=== PATIENT | female | born 1950 ===

== ENCOUNTER 2016-05-30 15:25 | Inpatient (IN) | payer OTHER ==
[2016-05-27 06:17] VITALS: BMI 37.9
[2016-05-30 18:02] VITALS: RESP 20
--- NOTE | 2016-05-30 18:53 | CP.PCM.CON ---
History of Present Illness - History of Present Illness History of Present Illness: Dr Sánchez PMR consultation on Ankita Gonzalez, born 1950, who has been admitted to [facility] TCU post op right THR by Dr Gama secondary to severe DJD post op stable, pain is controlled, minimal meds requested. + constipation Review of Systems - Constitutional Constitutional: absent: Anorexia, Chills - EENT Eyes: absent: Blurred Vision Nose/Mouth/Throat: absent: Nasal Congestion - Cardiovascular Cardiovascular: absent: Chest Pain - Respiratory Respiratory: absent: Dyspnea - Gastrointestinal Gastrointestinal: Constipation - Musculoskeletal Musculoskeletal: absent: Back Pain - Integumentary Integumentary: Other (right hip incision) - Neurological Neurological: absent: Abnormal Hearing, Abnormal Movements - Hematologic/Lymphatic Hematologic: absent: Easy Bruising Past Patient History - Past Medical History & Family History Past Medical History?: Yes - Past Social History Smoking Status: Heavy Smoker > 10 Cigarettes Daily Alcohol: None Drugs: Denies Home Situation {Lives}: With Family (few entry steps) - CARDIAC Hx Hypertension: No - ENDOCRINE/METABOLIC Hx Diabetes Mellitus Type 2: Yes - MUSCULOSKELETAL/RHEUMATOLOGICAL Hx Falls: Yes Hx Osteoarthritis: Yes - SURGICAL HISTORY Hx Surgeries: Yes Hx Appendectomy: Yes Hx Hysterectomy: Yes - ANESTHESIA Hx Anesthesia: Yes Hx Anesthesia Reactions: No Hx Malignant Hyperthermia: No Meds Allergies/Adverse Reactions: Allergies Allergy/AdvReac Type Severity Reaction Status Date / Time No Known Allergies Allergy Verified 05/30/16 16:08 - Medications Medications: Current Medications Aspirin (Aspirin) 325 mg PO DAILY [facility] Glyburide (Micronase) 5 mg PO BID [facility] Last Admin: 05/30/16 17:45 Dose: 5 mg Metformin HCl (Glucophage) 500 mg PO BID [facility] Last Admin: 05/30/16 17:45 Dose: 500 mg Ondansetron HCl (Zofran Inj) 4 mg IVP Q6 PRN PRN Reason: Nausea/Vomiting Oxycodone/Acetaminophen (Percocet 5/325 Mg Tab) 1 tab PO Q4 PRN PRN Reason: Pain, moderate (4-7) Stop: 06/02/16 17:00 Pantoprazole Sodium (Protonix Ec Tab) 40 mg PO DAILY [facility] Pneumococcal Polyvalent Vaccine (Pneumovax 23 Vaccine) 0.5 ml IM .ONCE ONE Stop: 05/31/16 09:01 Tramadol HCl (Ultram) 50 mg PO Q12 [facility] Physical Exam - Constitutional Appears: Non-toxic, No Acute Distress - Head Exam Head Exam: ATRAUMATIC, NORMAL INSPECTION, NORMOCEPHALIC - Eye Exam Eye Exam: EOMI - ENT Exam ENT Exam: Mucous Membranes Moist - Respiratory Exam Respiratory Exam: Chest Wall Tenderness - Cardiovascular Exam Cardiovascular Exam: REGULAR RHYTHM - GI/Abdominal Exam GI & Abdominal Exam: absent: Firm - Extremities Exam Extremities exam: Negative for: calf tenderness, pedal edema - Neurological Exam Neurological exam: Alert, CN II-XII Intact, Oriented x3 - Psychiatric Exam Psychiatric exam: Normal Affect, Normal Mood Results - Vital Signs Recent Vital Signs: Last Vital Signs Temp 97.9 F 05/30/16 18:01 Pulse 69 05/30/16 18:01 Resp 20 05/30/16 18:01 BP 128/60 05/30/16 18:01 Pulse Ox 99 05/30/16 18:01 - Labs Labs: Laboratory Results - last 24 hr 05/30/16 16:29 POC Glucose (mg/dL) 215 H Assessment & Plan - Assessment and Plan (Free Text) Plan: s/p right THR pain is controlled bowel regimen in A-frame for THP as well continue current care PT/OT
[2016-05-30] MEDS: Oxycodone/Acetaminophen 5/325 mg Tab PO PRN (19:00)
[2016-05-31] MEDS: Oxycodone/Acetaminophen 5/325 mg Tab PO PRN ×3 (06:45→19:46)
[2016-05-31] MEDS ORDERED: Pneumococcal 23-Valent Vaccine IM ONE (09:00)
[2016-05-31] MEDS: Pantoprazole 40 mg EC Tab PO SCH (10:06)
--- NOTE | 2016-05-31 10:06 | CP.PCM.HP ---
History of Present Illness - History of Present Illness History of Present Illness: This is a 66 y/o female admitted for further rehab and Phys therapy. She had a recent right THR , 3 days ago. immediate post op period was unremarkable. Has hx of DM 2 on Metformin and glyburide. Present on Admission - Present on Admission Any Indicators Present on Admission: No History of DVT/PE: No History of Uncontrolled Diabetes: Yes Urinary Catheter: No Decubitus Ulcer Present: No Review of Systems - Musculoskeletal Musculoskeletal: Abnormal Gait, Arthralgias Past Patient History - Past Medical History & Family History Past Medical History?: Yes - Past Social History Smoking Status: Heavy Smoker > 10 Cigarettes Daily Alcohol: None Drugs: Denies Home Situation {Lives}: With Family (few entry steps) - CARDIAC Hx Hypertension: No - ENDOCRINE/METABOLIC Hx Diabetes Mellitus Type 2: Yes - MUSCULOSKELETAL/RHEUMATOLOGICAL Hx Falls: Yes Hx Osteoarthritis: Yes - PSYCHIATRIC Hx Substance Use: No - SURGICAL HISTORY Hx Surgeries: Yes Hx Appendectomy: Yes Hx Hysterectomy: Yes - ANESTHESIA Hx Anesthesia: Yes Hx Anesthesia Reactions: No Hx Malignant Hyperthermia: No Meds Allergies/Adverse Reactions: Allergies Allergy/AdvReac Type Severity Reaction Status Date / Time No Known Allergies Allergy Verified 05/30/16 16:08 Physical Exam - Head Exam Head Exam: NORMAL INSPECTION - Eye Exam Eye Exam: Normal appearance - ENT Exam ENT Exam: Mucous Membranes Moist - Neck Exam Neck exam: Positive for: Normal Inspection - Respiratory Exam Respiratory Exam: Clear to Auscultation Bilateral, NORMAL BREATHING PATTERN - GI/Abdominal Exam GI & Abdominal Exam: Normal Bowel Sounds - Neurological Exam Neurological exam: CN II-XII Intact, Oriented x3 - Psychiatric Exam Psychiatric exam: Normal Mood Results - Vital Signs Recent Vital Signs: Last Vital Signs Temp 98.2 F 05/31/16 08:36 Pulse 68 05/31/16 08:36 Resp 20 05/31/16 08:36 BP 113/50 L 05/31/16 08:36 Pulse Ox 100 05/31/16 08:36 - Labs Labs: Laboratory Results - last 24 hr 05/30/16 05/30/16 05/31/16 16:29 21:36 05:28 POC Glucose (mg/dL) 215 H 189 H 227 H Assessment & Plan (1) Gait abnormality Status: Acute (2) Status post total hip replacement, right Status: Acute (3) Diabetes mellitus type 2 in obese Status: Acute - Assessment and Plan (Free Text) Plan: Con tmeds Cont txPain meds stool softener. start PT
[2016-06-01] MEDS: Oxycodone/Acetaminophen 5/325 mg Tab PO PRN ×3 (04:59→22:24)
[2016-06-01] MEDS: Pantoprazole 40 mg EC Tab PO SCH (08:46)
[2016-06-02] MEDS: Oxycodone/Acetaminophen 5/325 mg Tab PO PRN ×4 (06:32→23:47)
--- NOTE | 2016-06-02 09:31 | CP.PCM.PN ---
Subjective - Date & Time of Evaluation Date of Evaluation: 06/01/16 Time of Evaluation: 09:35 - Subjective Subjective: patient has so much constipation Poor response to lactulose Has no abd pain. Noted some drainage on the op wound. No fever. A ccucheck elevated Objective - Vital Signs/Intake and Output Vital Signs (last 24 hours): Temp Pulse Resp BP Pulse Ox 98.2 F 74 20 122/59 L 99 06/01/16 22:20 06/01/16 22:20 06/01/16 22:20 06/01/16 22:20 06/01/16 22:20 - Medications Medications: Current Medications Aspirin (Aspirin) 325 mg PO DAILY [facility] Last Admin: 06/01/16 08:49 Dose: 325 mg Glyburide (Micronase) 5 mg PO BID [facility] Last Admin: 06/01/16 16:53 Dose: 5 mg Metformin HCl (Glucophage) 500 mg PO BID [facility] Last Admin: 06/01/16 16:53 Dose: 500 mg Ondansetron HCl (Zofran Inj) 4 mg IVP Q6 PRN PRN Reason: Nausea/Vomiting Oxycodone/Acetaminophen (Percocet 5/325 Mg Tab) 1 tab PO Q4 PRN PRN Reason: Pain, moderate (4-7) Stop: 06/02/16 17:00 Last Admin: 06/02/16 06:32 Dose: 1 tab Pantoprazole Sodium (Protonix Ec Tab) 40 mg PO DAILY [facility] Last Admin: 06/01/16 08:46 Dose: 40 mg Sennosides (Senokot Tab) 17.2 mg PO HS [facility] Last Admin: 06/01/16 21:50 Dose: 17.2 mg Sodium Phosphate (Fleet Enema) 135 ml [place] ONCE PRN PRN Reason: Constipation Last Admin: 06/01/16 15:19 Dose: 135 ml Tramadol HCl (Ultram) 50 mg PO Q12 [facility] Last Admin: 06/01/16 21:49 Dose: 50 mg - Head Exam Head Exam: NORMAL INSPECTION - Eye Exam Eye Exam: Normal appearance - Respiratory Exam Respiratory Exam: Clear to Ausculation Bilateral - Cardiovascular Exam Cardiovascular Exam: REGULAR RHYTHM - GI/Abdominal Exam GI & Abdominal Exam: Normal Bowel Sounds - Extremities Exam Additional comments: noted drainage on the right op wound - Neurological Exam Neurological Exam: Awake, CN II-XII Intact, Oriented x3 Assessment and Plan (1) Gait abnormality Status: Acute (2) Status post total hip replacement, right Status: Acute (3) Diabetes mellitus type 2 in obese Status: Acute - Assessment and Plan (Free Text) Plan: cont meds check a1c lipid cmp urine microalb tsh in am cbc in am
--- NOTE | 2016-06-02 09:34 | CP.PCM.PN ---
Subjective - Date & Time of Evaluation Date of Evaluation: 06/02/16 Time of Evaluation: 09:32 - Subjective Subjective: patient was able to have bm after enema. Has no chest pain or SOB Still with a lot of drainage on the op site. Noted elevated accucheck. Objective - Vital Signs/Intake and Output Vital Signs (last 24 hours): Temp Pulse Resp BP Pulse Ox 98.2 F 74 20 122/59 L 99 06/01/16 22:20 06/01/16 22:20 06/01/16 22:20 06/01/16 22:20 06/01/16 22:20 - Medications Medications: Current Medications Aspirin (Aspirin) 325 mg PO DAILY [facility] Last Admin: 06/01/16 08:49 Dose: 325 mg Glyburide (Micronase) 5 mg PO BID [facility] Last Admin: 06/01/16 16:53 Dose: 5 mg Metformin HCl (Glucophage) 500 mg PO BID [facility] Last Admin: 06/01/16 16:53 Dose: 500 mg Ondansetron HCl (Zofran Inj) 4 mg IVP Q6 PRN PRN Reason: Nausea/Vomiting Oxycodone/Acetaminophen (Percocet 5/325 Mg Tab) 1 tab PO Q4 PRN PRN Reason: Pain, moderate (4-7) Stop: 06/02/16 17:00 Last Admin: 06/02/16 06:32 Dose: 1 tab Pantoprazole Sodium (Protonix Ec Tab) 40 mg PO DAILY [facility] Last Admin: 06/01/16 08:46 Dose: 40 mg Sennosides (Senokot Tab) 17.2 mg PO HS [facility] Last Admin: 06/01/16 21:50 Dose: 17.2 mg Sodium Phosphate (Fleet Enema) 135 ml [place] ONCE PRN PRN Reason: Constipation Last Admin: 06/01/16 15:19 Dose: 135 ml Tramadol HCl (Ultram) 50 mg PO Q12 [facility] Last Admin: 06/01/16 21:49 Dose: 50 mg - Head Exam Head Exam: NORMAL INSPECTION - Eye Exam Eye Exam: Normal appearance - Respiratory Exam Respiratory Exam: Clear to Ausculation Bilateral, NORMAL BREATHING PATTERN - Cardiovascular Exam Cardiovascular Exam: REGULAR RHYTHM - GI/Abdominal Exam GI & Abdominal Exam: Normal Bowel Sounds - Extremities Exam Additional comments: serosanginous drainage on the right THR wound. Assessment and Plan (1) Gait abnormality Status: Acute (2) Status post total hip replacement, right Status: Acute (3) Diabetes mellitus type 2 in obese Status: Acute - Assessment and Plan (Free Text) Plan: increase metformin to 1000 BID check labs start januvia 100 mg daily DC glyburide stool softener inform Dr Hernandez re drainage. check labs
[2016-06-02] MEDS: Pantoprazole 40 mg EC Tab PO SCH (10:02)
[2016-06-02 11:47] LABS: BASO # 0.1 K/uL (0.0-0.2); BASO % 1.1 % (0.0-2.0); EOS # 0.4 K/uL (0.0-0.7); EOS % 5.9 % (0.0-4.0); HEMATOCRIT 28.3 % (34.0-47.0); LYMPH # 1.6 K/uL (1.0-4.3); LYMPH % 23.4 % (20.0-40.0); MEAN CELL VOLUME 90.9 fl (81.0-99.0); MEAN CORPUSCULAR HEMOGLOBIN 30.9 pg (27.0-31.0); MEAN PLATELET VOLUME 8.3 fl (7.2-11.7); MONO # 0.8 K/uL (0.0-0.8); MONO % 12.2 % (0.0-10.0); NEUT # 3.9 K/uL (1.8-7.0); NEUT % 57.4 % (50.0-75.0); NRBC % 0.1 % (0.0-0.0); WHITE BLOOD COUNT 6.8 K/uL (4.8-10.8)
[2016-06-02 12:02] LABS: ALKALINE PHOSPHATASE 94 U/L (38-126); ALT/SGPT 33 U/L (9-52); AST/SGOT 17 U/L (14-36); BILIRUBIN,TOTAL 0.5 mg/dl (0.2-1.3); BLOOD UREA NITROGEN 13 mg/dl (7-17); CALCIUM 9.2 mg/dL (8.4-10.2); CARBON DIOXIDE 30 mmol/L (22-30); CHLORIDE 96 mmol/L (98-107); CHOLESTEROL 199 mg/dL (0-199); GFR AFRICAN-AMERICAN > 60; GLUCOSE,RANDOM 228 mg/dL (65-105); POTASSIUM 4.9 MMOL/L (3.6-5.0); SODIUM 136 mmol/l (132-148)
[2016-06-02 12:31] LABS: THYROID STIMULATING HORMONE 1.16 mIU/ML (0.46-4.68)
[2016-06-03] MEDS: Oxycodone/Acetaminophen 5/325 mg Tab PO PRN ×2 (05:14→15:09)
[2016-06-03] MEDS: Pantoprazole 40 mg EC Tab PO SCH (08:35)
--- NOTE | 2016-06-03 10:58 | CP.PCM.PN ---
Subjective - Date & Time of Evaluation Date of Evaluation: 06/03/16 Time of Evaluation: 09:40 - Subjective Subjective: Pt seen and examined at bedside this morning, she would like a new room, as the pt next door to her keep screaming weird thing especially at night and she is uncomfortable. other that her pain is well controlled and rehab is going ok. No other complaints Objective - Vital Signs/Intake and Output Vital Signs (last 24 hours): Temp Pulse Resp BP Pulse Ox 98.1 F 72 20 110/59 L 100 06/03/16 07:53 06/03/16 08:34 06/03/16 07:53 06/03/16 08:34 06/03/16 07:53 - Medications Medications: Current Medications Aspirin (Aspirin) 325 mg PO DAILY [facility] Last Admin: 06/03/16 08:34 Dose: 325 mg Losartan Potassium (Cozaar) 25 mg PO DAILY [facility] Last Admin: 06/03/16 08:34 Dose: 25 mg Metformin HCl (Glucophage) 1,000 mg PO BIDWM [facility] Last Admin: 06/03/16 08:35 Dose: 1,000 mg Ondansetron HCl (Zofran Inj) 4 mg IVP Q6 PRN PRN Reason: Nausea/Vomiting Oxycodone/Acetaminophen (Percocet 5/325 Mg Tab) 1 tab PO Q4 PRN PRN Reason: Pain, moderate (4-7) Stop: 06/05/16 18:46 Last Admin: 06/03/16 05:14 Dose: 1 tab Pantoprazole Sodium (Protonix Ec Tab) 40 mg PO DAILY [facility] Last Admin: 06/03/16 08:35 Dose: 40 mg Sennosides (Senokot Tab) 17.2 mg PO HS [facility] Last Admin: 06/02/16 21:04 Dose: 17.2 mg Sitagliptin Phosphate (Januvia) 100 mg PO DAILY [facility] Last Admin: 06/03/16 08:35 Dose: 100 mg Sodium Phosphate (Fleet Enema) 135 ml [place] ONCE PRN PRN Reason: Constipation Last Admin: 06/01/16 15:19 Dose: 135 ml Tramadol HCl (Ultram) 50 mg PO Q12 [facility] Last Admin: 06/03/16 08:35 Dose: 50 mg - Labs Labs: 06/02/16 10:40 06/02/16 10:40 - Constitutional Appears: Non-toxic, No Acute Distress - Head Exam Head Exam: NORMOCEPHALIC - Eye Exam Eye Exam: Normal appearance, PERRL Pupil Exam: NORMAL ACCOMODATION - ENT Exam ENT Exam: Mucous Membranes Moist - Respiratory Exam Respiratory Exam: Clear to Ausculation Bilateral, NORMAL BREATHING PATTERN. absent: Rhonchi, Wheezes - Cardiovascular Exam Cardiovascular Exam: REGULAR RHYTHM, +S1, +S2 - GI/Abdominal Exam GI & Abdominal Exam: Soft, Normal Bowel Sounds. absent: Tenderness - Extremities Exam Extremities Exam: absent: Calf Tenderness Additional comments: Right hip neatly dressed, no discharge noted, no redness, no signs of infection - Neurological Exam Neurological Exam: Alert, Awake, CN II-XII Intact, Oriented x3 Assessment and Plan - Assessment and Plan (Free Text) Plan: 1. Right HIP replacement Pain management as ordered Continue with Physical therapy 2. NonInsulin Dependent Diabetes Continue with home medications as ordered Diet- Diabetic DVT prophylaxis- Aspirin per orthopedic surgeon
[2016-06-04] MEDS: Oxycodone/Acetaminophen 5/325 mg Tab PO PRN ×2 (03:05→18:05)
[2016-06-04] MEDS: Pantoprazole 40 mg EC Tab PO SCH (08:31)
--- NOTE | 2016-06-04 11:03 | CP.PCM.PN ---
Subjective - Date & Time of Evaluation Date of Evaluation: 06/04/16 Time of Evaluation: 09:00 - Subjective Subjective: Pt seen and examined at bedside this morning, states she walked from the bathroom into the chair she was sitting in without assistance. Appears to be making great progress with rehab Objective - Vital Signs/Intake and Output Vital Signs (last 24 hours): Temp Pulse Resp BP Pulse Ox 97.7 F 66 20 115/58 L 99 06/04/16 08:44 06/04/16 08:44 06/04/16 08:44 06/04/16 08:44 06/04/16 08:44 - Medications Medications: Current Medications Aspirin (Aspirin) 325 mg PO DAILY [facility] Last Admin: 06/03/16 08:34 Dose: 325 mg Losartan Potassium (Cozaar) 25 mg PO DAILY [facility] Last Admin: 06/04/16 08:32 Dose: 25 mg Metformin HCl (Glucophage) 1,000 mg PO BIDWM [facility] Last Admin: 06/04/16 08:30 Dose: 1,000 mg Ondansetron HCl (Zofran Inj) 4 mg IVP Q6 PRN PRN Reason: Nausea/Vomiting Oxycodone/Acetaminophen (Percocet 5/325 Mg Tab) 1 tab PO Q4 PRN PRN Reason: Pain, moderate (4-7) Stop: 06/05/16 18:46 Last Admin: 06/04/16 03:05 Dose: 1 tab Pantoprazole Sodium (Protonix Ec Tab) 40 mg PO DAILY [facility] Last Admin: 06/04/16 08:31 Dose: 40 mg Sennosides (Senokot Tab) 17.2 mg PO HS [facility] Last Admin: 06/03/16 21:04 Dose: 17.2 mg Sitagliptin Phosphate (Januvia) 100 mg PO DAILY [facility] Last Admin: 06/04/16 08:30 Dose: 100 mg Sodium Phosphate (Fleet Enema) 135 ml [place] ONCE PRN PRN Reason: Constipation Last Admin: 06/01/16 15:19 Dose: 135 ml Tramadol HCl (Ultram) 50 mg PO Q12 [facility] Last Admin: 06/04/16 08:31 Dose: 50 mg - Labs Labs: 06/02/16 10:40 06/02/16 10:40 - Constitutional Appears: Non-toxic, No Acute Distress - Head Exam Head Exam: NORMOCEPHALIC - Eye Exam Eye Exam: Normal appearance, PERRL Pupil Exam: NORMAL ACCOMODATION - ENT Exam ENT Exam: Mucous Membranes Moist - Respiratory Exam Respiratory Exam: Clear to Ausculation Bilateral, NORMAL BREATHING PATTERN. absent: Rhonchi, Wheezes - Cardiovascular Exam Cardiovascular Exam: REGULAR RHYTHM, +S1, +S2 - GI/Abdominal Exam GI & Abdominal Exam: Soft, Normal Bowel Sounds. absent: Tenderness - Extremities Exam Extremities Exam: Calf Tenderness, Pedal Edema Additional comments: lower extremity is swollen R>L - Neurological Exam Neurological Exam: Alert, Awake, CN II-XII Intact, Oriented x3 Assessment and Plan - Assessment and Plan (Free Text) Assessment: 66 y/o female diabetic in rehab s/p hip replacement Plan: Plan: 1. Right HIP replacement Pain management as ordered Continue with Physical therapy Lower extremity swelling- Ultrasound ordered- awaiting results 2. NonInsulin Dependent Diabetes Continue with home medications as ordered Diet- Diabetic DVT prophylaxis- Aspirin per orthopedic surgeon Will re-evaluate later today , if swelling persist will start lovenox
--- NOTE | 2016-06-04 17:55 | CP.PCM.PN ---
Subjective - Date & Time of Evaluation Date of Evaluation: 06/04/16 Time of Evaluation: 17:55 - Subjective Subjective: patient seen in room doing ok denies sob/cp or fever able to ambulate 40' continue current care Objective - Vital Signs/Intake and Output Vital Signs (last 24 hours): Temp Pulse Resp BP Pulse Ox 97 F L 69 20 118/66 98 06/04/16 16:31 06/04/16 16:31 06/04/16 16:31 06/04/16 16:31 06/04/16 16:31 - Medications Medications: Current Medications Aspirin (Aspirin) 325 mg PO DAILY [facility] Last Admin: 06/04/16 09:15 Dose: 325 mg Cefazolin Sodium 1 gm/ Sodium (Chloride) 100 mls @ 100 mls/hr IVPB Q12@0500, 1700 [facility] Losartan Potassium (Cozaar) 25 mg PO DAILY [facility] Last Admin: 06/04/16 08:32 Dose: 25 mg Metformin HCl (Glucophage) 1,000 mg PO BIDWM [facility] Last Admin: 06/04/16 08:30 Dose: 1,000 mg Ondansetron HCl (Zofran Inj) 4 mg IVP Q6 PRN PRN Reason: Nausea/Vomiting Oxycodone/Acetaminophen (Percocet 5/325 Mg Tab) 1 tab PO Q4 PRN PRN Reason: Pain, moderate (4-7) Stop: 06/05/16 18:46 Last Admin: 06/04/16 03:05 Dose: 1 tab Pantoprazole Sodium (Protonix Ec Tab) 40 mg PO DAILY [facility] Last Admin: 06/04/16 08:31 Dose: 40 mg Sennosides (Senokot Tab) 17.2 mg PO HS [facility] Last Admin: 06/03/16 21:04 Dose: 17.2 mg Sitagliptin Phosphate (Januvia) 100 mg PO DAILY [facility] Last Admin: 06/04/16 08:30 Dose: 100 mg Sodium Phosphate (Fleet Enema) 135 ml [place] ONCE PRN PRN Reason: Constipation Last Admin: 06/01/16 15:19 Dose: 135 ml Tramadol HCl (Ultram) 50 mg PO Q12 [facility] Last Admin: 06/04/16 08:31 Dose: 50 mg - Labs Labs: 06/02/16 10:40 06/02/16 10:40
[2016-06-04] MEDS: ceFAZolin 1 GM in Sodium Chloride 0.9% 100 ML IVPB SCH (18:08)
[2016-06-05] MEDS: Oxycodone/Acetaminophen 5/325 mg Tab PO PRN ×3 (02:31→14:56)
[2016-06-05] MEDS: ceFAZolin 1 GM in Sodium Chloride 0.9% 100 ML IVPB SCH ×2 (05:02→17:31)
[2016-06-05] MEDS: Pantoprazole 40 mg EC Tab PO SCH (09:12)
--- NOTE | 2016-06-05 11:12 | CP.PCM.PN ---
Subjective - Date & Time of Evaluation Date of Evaluation: 06/05/16 Time of Evaluation: 10:00 - Subjective Subjective: Pt seen and examined at bedside this morning, she feels like leg swelling is improving, states pain has improved. she is ambulating ok. rehab is going well Objective - Vital Signs/Intake and Output Vital Signs (last 24 hours): Temp Pulse Resp BP Pulse Ox 97.2 F L 60 20 114/61 100 06/05/16 08:37 06/05/16 09:12 06/05/16 08:37 06/05/16 09:12 06/05/16 08:37 - Medications Medications: Current Medications Aspirin (Aspirin) 325 mg PO DAILY [facility] Last Admin: 06/05/16 09:11 Dose: 325 mg Cefazolin Sodium 1 gm/ Sodium (Chloride) 100 mls @ 100 mls/hr IVPB Q12@0500, 1700 [facility] Last Admin: 06/05/16 05:02 Dose: 100 mls/hr Losartan Potassium (Cozaar) 25 mg PO DAILY [facility] Last Admin: 06/05/16 09:12 Dose: 25 mg Metformin HCl (Glucophage) 1,000 mg PO BIDWM [facility] Last Admin: 06/05/16 09:11 Dose: 1,000 mg Ondansetron HCl (Zofran Inj) 4 mg IVP Q6 PRN PRN Reason: Nausea/Vomiting Oxycodone/Acetaminophen (Percocet 5/325 Mg Tab) 1 tab PO Q4 PRN PRN Reason: Pain, moderate (4-7) Stop: 06/05/16 18:46 Last Admin: 06/05/16 07:34 Dose: 1 tab Pantoprazole Sodium (Protonix Ec Tab) 40 mg PO DAILY [facility] Last Admin: 06/05/16 09:12 Dose: 40 mg Sennosides (Senokot Tab) 17.2 mg PO HS [facility] Last Admin: 06/04/16 21:35 Dose: 17.2 mg Sitagliptin Phosphate (Januvia) 100 mg PO DAILY [facility] Last Admin: 06/05/16 09:12 Dose: 100 mg Sodium Phosphate (Fleet Enema) 135 ml [place] ONCE PRN PRN Reason: Constipation Last Admin: 06/01/16 15:19 Dose: 135 ml Tramadol HCl (Ultram) 50 mg PO Q12 [facility] Last Admin: 06/05/16 09:11 Dose: 50 mg - Labs Labs: 06/02/16 10:40 06/02/16 10:40 - Constitutional Appears: Non-toxic, No Acute Distress - Head Exam Head Exam: NORMOCEPHALIC - Eye Exam Eye Exam: Normal appearance, PERRL Pupil Exam: NORMAL ACCOMODATION - ENT Exam ENT Exam: Mucous Membranes Moist - Respiratory Exam Respiratory Exam: Clear to Ausculation Bilateral, NORMAL BREATHING PATTERN. absent: Rhonchi, Wheezes - Cardiovascular Exam Cardiovascular Exam: REGULAR RHYTHM, +S1, +S2 - GI/Abdominal Exam GI & Abdominal Exam: Soft, Normal Bowel Sounds. absent: Tenderness - Extremities Exam Additional comments: Minimal calf tenderness of right calf Right lower extremity remain swollen about 3+ edema No warmth, no erythema - Neurological Exam Neurological Exam: Alert, Awake, CN II-XII Intact, Oriented x3 Assessment and Plan - Assessment and Plan (Free Text) Assessment: 66 y/o female diabetic in rehab s/p hip replacement Plan: 1. Right HIP replacement Pain management as ordered Continue with Physical therapy 2. Right lower extremity Swelling Venous Doppler negative for clot Arterial Doppler shows evidence of mild atheroscloresis dx Discussed with surgical PA again regarding starting Lovenox- Per PA, Dr. Gama recommends aspirin since ultrasound is negative will continue Ancef Q12hrs 3. NonInsulin Dependent Diabetes Continue with home medications as ordered Diet- Diabetic DVT prophylaxis- Aspirin per orthopedic surgeon
[2016-06-06] MEDS: ceFAZolin 1 GM in Sodium Chloride 0.9% 100 ML IVPB SCH ×2 (04:46→17:24)
[2016-06-06] MEDS: Oxycodone/Acetaminophen 5/325 mg Tab PO PRN ×3 (08:31→23:15)
[2016-06-06] MEDS: Pantoprazole 40 mg EC Tab PO SCH (08:32)
--- NOTE | 2016-06-06 12:15 | CP.PCM.PN ---
Subjective - Date & Time of Evaluation Date of Evaluation: 06/06/16 Time of Evaluation: 09:40 - Subjective Subjective: Pt seen and examined at the rehab gym this morning, right lower extremity looks much better, not as swollen as the previous days. doing well; does not have any complaints Objective - Vital Signs/Intake and Output Vital Signs (last 24 hours): Temp Pulse Resp BP Pulse Ox 97.7 F 61 20 104/36 L 100 06/06/16 08:47 06/06/16 08:47 06/06/16 08:47 06/06/16 08:47 06/06/16 08:47 - Medications Medications: Current Medications Aspirin (Aspirin) 325 mg PO DAILY [facility] Last Admin: 06/06/16 08:30 Dose: 325 mg Cefazolin Sodium 1 gm/ Sodium (Chloride) 100 mls @ 100 mls/hr IVPB Q12@0500, 1700 [facility] Last Admin: 06/06/16 04:46 Dose: 100 mls/hr Losartan Potassium (Cozaar) 25 mg PO DAILY [facility] Last Admin: 06/06/16 08:32 Dose: 25 mg Metformin HCl (Glucophage) 1,000 mg PO BIDWM [facility] Last Admin: 06/06/16 08:32 Dose: 1,000 mg Ondansetron HCl (Zofran Inj) 4 mg IVP Q6 PRN PRN Reason: Nausea/Vomiting Oxycodone/Acetaminophen (Percocet 5/325 Mg Tab) 1 tab PO Q4 PRN PRN Reason: Pain, severe (8-10) Stop: 06/09/16 07:03 Last Admin: 06/06/16 08:31 Dose: 1 tab Pantoprazole Sodium (Protonix Ec Tab) 40 mg PO DAILY [facility] Last Admin: 06/06/16 08:32 Dose: 40 mg Sennosides (Senokot Tab) 17.2 mg PO HS [facility] Last Admin: 06/05/16 21:28 Dose: 17.2 mg Sitagliptin Phosphate (Januvia) 100 mg PO DAILY [facility] Last Admin: 06/06/16 08:31 Dose: 100 mg Sodium Phosphate (Fleet Enema) 135 ml [place] ONCE PRN PRN Reason: Constipation Last Admin: 06/01/16 15:19 Dose: 135 ml Tramadol HCl (Ultram) 50 mg PO Q12 [facility] Last Admin: 06/06/16 09:57 Dose: 50 mg - Labs Labs: 06/02/16 10:40 06/02/16 10:40 - Constitutional Appears: Non-toxic, No Acute Distress - Head Exam Head Exam: NORMOCEPHALIC - Eye Exam Eye Exam: Normal appearance, PERRL Pupil Exam: NORMAL ACCOMODATION - ENT Exam ENT Exam: Mucous Membranes Moist - Respiratory Exam Respiratory Exam: Clear to Ausculation Bilateral, NORMAL BREATHING PATTERN. absent: Rhonchi, Wheezes - Cardiovascular Exam Cardiovascular Exam: REGULAR RHYTHM, +S1, +S2 - GI/Abdominal Exam GI & Abdominal Exam: Soft, Normal Bowel Sounds. absent: Tenderness - Extremities Exam Additional comments: swelling improved greatly , no redness, not warm - Neurological Exam Neurological Exam: Alert, Awake, CN II-XII Intact, Oriented x3 Assessment and Plan - Assessment and Plan (Free Text) Assessment: 66 y/o female diabetic in rehab s/p hip replacement Plan: 1. Right HIP replacement Pain management as ordered Continue with Physical therapy 2. Right lower extremity Swelling improved greatly Venous Doppler negative for clot Arterial Doppler shows evidence of mild atheroscloresis dx Discussed with surgical PA again regarding starting Lovenox- Per PA, Dr. Gama recommends aspirin since ultrasound is negative will continue Ancef Q12hrs 3. NonInsulin Dependent Diabetes Continue with home medications as ordered Diet- Diabetic DVT prophylaxis- Aspirin per orthopedic surgeon
[2016-06-07] MEDS: ceFAZolin 1 GM in Sodium Chloride 0.9% 100 ML IVPB SCH ×2 (04:48→17:03)
[2016-06-07] MEDS: Pantoprazole 40 mg EC Tab PO SCH (08:45)
[2016-06-07] MEDS: Oxycodone/Acetaminophen 5/325 mg Tab PO PRN ×2 (11:18→19:01)
[2016-06-08] MEDS: ceFAZolin 1 GM in Sodium Chloride 0.9% 100 ML IVPB SCH ×2 (04:45→17:31)
[2016-06-08] MEDS: Oxycodone/Acetaminophen 5/325 mg Tab PO PRN ×2 (07:57→17:31)
[2016-06-08] MEDS: Pantoprazole 40 mg EC Tab PO SCH (08:46)
--- NOTE | 2016-06-08 16:29 | CP.PCM.PN ---
Subjective - Date & Time of Evaluation Date of Evaluation: 06/07/16 Time of Evaluation: 09:40 - Subjective Subjective: Patient remains well Noted improvement of FBS Objective - Vital Signs/Intake and Output Vital Signs (last 24 hours): Temp Pulse Resp BP Pulse Ox 97.7 F 60 20 109/73 98 06/08/16 08:19 06/08/16 08:46 06/08/16 08:19 06/08/16 08:46 06/08/16 08:19 - Medications Medications: Current Medications Aspirin (Aspirin) 325 mg PO DAILY [facility] Last Admin: 06/08/16 08:45 Dose: 325 mg Cefazolin Sodium 1 gm/ Sodium (Chloride) 100 mls @ 100 mls/hr IVPB Q12@0500, 1700 [facility] Last Admin: 06/08/16 04:45 Dose: 100 mls/hr Losartan Potassium (Cozaar) 25 mg PO DAILY [facility] Last Admin: 06/08/16 08:46 Dose: 25 mg Metformin HCl (Glucophage) 1,000 mg PO BIDWM [facility] Last Admin: 06/08/16 08:46 Dose: 1,000 mg Ondansetron HCl (Zofran Inj) 4 mg IVP Q6 PRN PRN Reason: Nausea/Vomiting Oxycodone/Acetaminophen (Percocet 5/325 Mg Tab) 1 tab PO Q4 PRN PRN Reason: Pain, severe (8-10) Stop: 06/09/16 07:03 Last Admin: 06/08/16 07:57 Dose: 1 tab Pantoprazole Sodium (Protonix Ec Tab) 40 mg PO DAILY [facility] Last Admin: 06/08/16 08:46 Dose: 40 mg Sennosides (Senokot Tab) 17.2 mg PO HS [facility] Last Admin: 06/07/16 21:10 Dose: 17.2 mg Sitagliptin Phosphate (Januvia) 100 mg PO DAILY [facility] Last Admin: 06/08/16 08:46 Dose: 100 mg Sodium Phosphate (Fleet Enema) 135 ml [place] ONCE PRN PRN Reason: Constipation Last Admin: 06/01/16 15:19 Dose: 135 ml Tramadol HCl (Ultram) 50 mg PO Q12 [facility] Last Admin: 06/08/16 08:45 Dose: 50 mg - Labs Labs: 06/02/16 10:40 06/02/16 10:40 Assessment and Plan (1) Gait abnormality Status: Acute (2) Status post total hip replacement, right Status: Acute (3) Diabetes mellitus type 2 in obese Status: Acute
[2016-06-08] MEDS: GlipiZIDE 2.5 mg SR Tab PO SCH (17:30)
[2016-06-09] MEDS: Oxycodone/Acetaminophen 5/325 mg Tab PO PRN ×2 (02:35→18:50)
[2016-06-09] MEDS: ceFAZolin 1 GM in Sodium Chloride 0.9% 100 ML IVPB SCH ×2 (04:35→17:19)
[2016-06-09] MEDS: GlipiZIDE 2.5 mg SR Tab PO SCH (08:31)
[2016-06-09] MEDS: Pantoprazole 40 mg EC Tab PO SCH (08:31)
--- NOTE | 2016-06-09 10:38 | CP.PCM.PN ---
Subjective - Date & Time of Evaluation Date of Evaluation: 06/08/16 Time of Evaluation: 16:00 - Subjective Subjective: patient remains stable Noted accuchecks to be around 120 Objective - Vital Signs/Intake and Output Vital Signs (last 24 hours): Temp Pulse Resp BP Pulse Ox 97.9 F 60 20 116/57 L 99 06/08/16 20:07 06/09/16 08:31 06/08/16 20:07 06/09/16 08:31 06/08/16 20:07 - Medications Medications: Current Medications Aspirin (Aspirin) 325 mg PO DAILY [facility] Last Admin: 06/09/16 08:34 Dose: 325 mg Glipizide (Glucotrol Xl) 2.5 mg PO BRK [facility] Last Admin: 06/09/16 08:31 Dose: 2.5 mg Cefazolin Sodium 1 gm/ Sodium (Chloride) 100 mls @ 100 mls/hr IVPB Q12@0500, 1700 [facility] Last Admin: 06/09/16 04:35 Dose: 100 mls/hr Losartan Potassium (Cozaar) 25 mg PO DAILY [facility] Last Admin: 06/09/16 08:31 Dose: 25 mg Metformin HCl (Glucophage) 1,000 mg PO BIDWM [facility] Last Admin: 06/09/16 08:31 Dose: 1,000 mg Ondansetron HCl (Zofran Inj) 4 mg IVP Q6 PRN PRN Reason: Nausea/Vomiting Pantoprazole Sodium (Protonix Ec Tab) 40 mg PO DAILY [facility] Last Admin: 06/09/16 08:31 Dose: 40 mg Sennosides (Senokot Tab) 17.2 mg PO HS [facility] Last Admin: 06/08/16 21:37 Dose: 17.2 mg Sitagliptin Phosphate (Januvia) 100 mg PO DAILY [facility] Last Admin: 06/09/16 08:31 Dose: 100 mg Sodium Phosphate (Fleet Enema) 135 ml [place] ONCE PRN PRN Reason: Constipation Last Admin: 06/01/16 15:19 Dose: 135 ml Tramadol HCl (Ultram) 50 mg PO Q12 [facility] Last Admin: 06/09/16 08:34 Dose: 50 mg - Labs Labs: 06/02/16 10:40 06/02/16 10:40 Assessment and Plan (1) Gait abnormality Status: Acute (2) Status post total hip replacement, right Status: Acute (3) Diabetes mellitus type 2 in obese Status: Acute
--- NOTE | 2016-06-09 10:39 | CP.PCM.PN ---
Subjective - Date & Time of Evaluation Date of Evaluation: 06/09/16 Time of Evaluation: 10:38 - Subjective Subjective: Doing well Has no chest pain or SOB. accuchecks have improved a lot. Objective - Vital Signs/Intake and Output Vital Signs (last 24 hours): Temp Pulse Resp BP Pulse Ox 97.9 F 60 20 116/57 L 99 06/08/16 20:07 06/09/16 08:31 06/08/16 20:07 06/09/16 08:31 06/08/16 20:07 - Medications Medications: Current Medications Aspirin (Aspirin) 325 mg PO DAILY [facility] Last Admin: 06/09/16 08:34 Dose: 325 mg Glipizide (Glucotrol Xl) 2.5 mg PO BRK [facility] Last Admin: 06/09/16 08:31 Dose: 2.5 mg Cefazolin Sodium 1 gm/ Sodium (Chloride) 100 mls @ 100 mls/hr IVPB Q12@0500, 1700 [facility] Last Admin: 06/09/16 04:35 Dose: 100 mls/hr Losartan Potassium (Cozaar) 25 mg PO DAILY [facility] Last Admin: 06/09/16 08:31 Dose: 25 mg Metformin HCl (Glucophage) 1,000 mg PO BIDWM [facility] Last Admin: 06/09/16 08:31 Dose: 1,000 mg Ondansetron HCl (Zofran Inj) 4 mg IVP Q6 PRN PRN Reason: Nausea/Vomiting Pantoprazole Sodium (Protonix Ec Tab) 40 mg PO DAILY [facility] Last Admin: 06/09/16 08:31 Dose: 40 mg Sennosides (Senokot Tab) 17.2 mg PO HS [facility] Last Admin: 06/08/16 21:37 Dose: 17.2 mg Sitagliptin Phosphate (Januvia) 100 mg PO DAILY [facility] Last Admin: 06/09/16 08:31 Dose: 100 mg Sodium Phosphate (Fleet Enema) 135 ml [place] ONCE PRN PRN Reason: Constipation Last Admin: 06/01/16 15:19 Dose: 135 ml Tramadol HCl (Ultram) 50 mg PO Q12 [facility] Last Admin: 06/09/16 08:34 Dose: 50 mg - Labs Labs: 06/02/16 10:40 06/02/16 10:40 Assessment and Plan (1) Gait abnormality Status: Acute (2) Status post total hip replacement, right Status: Acute (3) Diabetes mellitus type 2 in obese Status: Acute
[2016-06-10] MEDS: Oxycodone/Acetaminophen 5/325 mg Tab PO PRN ×2 (08:55→18:22)
[2016-06-10] MEDS: GlipiZIDE 2.5 mg SR Tab PO SCH (08:56)
[2016-06-10] MEDS: Pantoprazole 40 mg EC Tab PO SCH (08:56)
[2016-06-11] MEDS: Pantoprazole 40 mg EC Tab PO SCH (08:16)
[2016-06-11] MEDS: GlipiZIDE 2.5 mg SR Tab PO SCH (08:16)
[2016-06-11] MEDS: Oxycodone/Acetaminophen 5/325 mg Tab PO PRN ×2 (12:12→19:49)
--- NOTE | 2016-06-11 16:25 | CP.PCM.PN ---
Subjective - Date & Time of Evaluation Date of Evaluation: 06/11/16 Time of Evaluation: 11:05 - Subjective Subjective: Pt seen and examined at bedside, has no complaints, ready for discharge Objective - Vital Signs/Intake and Output Vital Signs (last 24 hours): Temp Pulse Resp BP Pulse Ox 97.9 F 60 20 113/67 99 06/11/16 07:59 06/11/16 08:16 06/11/16 07:59 06/11/16 08:16 06/11/16 07:59 - Medications Medications: Current Medications Aspirin (Aspirin) 325 mg PO DAILY [facility] Last Admin: 06/11/16 08:19 Dose: 325 mg Glipizide (Glucotrol Xl) 2.5 mg PO BRK [facility] Last Admin: 06/11/16 08:16 Dose: 2.5 mg Losartan Potassium (Cozaar) 25 mg PO DAILY [facility] Last Admin: 06/11/16 08:16 Dose: 25 mg Metformin HCl (Glucophage) 1,000 mg PO BIDWM [facility] Last Admin: 06/11/16 08:16 Dose: 1,000 mg Ondansetron HCl (Zofran Inj) 4 mg IVP Q6 PRN PRN Reason: Nausea/Vomiting Oxycodone/Acetaminophen (Percocet 5/325 Mg Tab) 1 tab PO Q4 PRN PRN Reason: Pain, severe (8-10) Stop: 06/12/16 18:28 Last Admin: 06/11/16 12:12 Dose: 1 tab Pantoprazole Sodium (Protonix Ec Tab) 40 mg PO DAILY [facility] Last Admin: 06/11/16 08:16 Dose: 40 mg Sennosides (Senokot Tab) 17.2 mg PO HS [facility] Last Admin: 06/10/16 21:28 Dose: 17.2 mg Sitagliptin Phosphate (Januvia) 100 mg PO DAILY [facility] Last Admin: 06/11/16 08:16 Dose: 100 mg Sodium Phosphate (Fleet Enema) 135 ml [place] ONCE PRN PRN Reason: Constipation Last Admin: 06/01/16 15:19 Dose: 135 ml Tramadol HCl (Ultram) 50 mg PO Q12 [facility] Last Admin: 06/11/16 08:17 Dose: 50 mg - Labs Labs: 06/02/16 10:40 06/02/16 10:40 - Constitutional Appears: Non-toxic, No Acute Distress - Head Exam Head Exam: NORMOCEPHALIC - Eye Exam Eye Exam: Normal appearance, PERRL Pupil Exam: NORMAL ACCOMODATION - ENT Exam ENT Exam: Mucous Membranes Moist - Respiratory Exam Respiratory Exam: Clear to Ausculation Bilateral, NORMAL BREATHING PATTERN. absent: Rhonchi, Wheezes - Cardiovascular Exam Cardiovascular Exam: REGULAR RHYTHM, +S1, +S2 - GI/Abdominal Exam GI & Abdominal Exam: Soft, Normal Bowel Sounds. absent: Tenderness - Extremities Exam Extremities Exam: Pedal Edema. absent: Calf Tenderness Additional comments: Right hip surgical site neatly dressed - Neurological Exam Neurological Exam: Alert, Awake, CN II-XII Intact, Oriented x3 Assessment and Plan - Assessment and Plan (Free Text) Assessment: 66 y/o female diabetic in rehab s/p hip replacement Plan: 1. Right HIP replacement Pain management as ordered Continue with Physical therapy 2. Right lower extremity Swelling improved greatly Venous Doppler negative for clot Arterial Doppler shows evidence of mild atheroscloresis dx Discussed with surgical PA again regarding starting Lovenox- Per PA, Dr. Gama recommends aspirin since ultrasound is negative will continue Ancef Q12hrs 3. NonInsulin Dependent Diabetes Continue with home medications as ordered Diet- Diabetic DVT prophylaxis- Aspirin per orthopedic surgeon Disposition: discharge tomorrow AM
[2016-06-11 20:44] VITALS: TEMP 97.7
[2016-06-12] MEDS: Pantoprazole 40 mg EC Tab PO SCH (08:23)
[2016-06-12] MEDS: GlipiZIDE 2.5 mg SR Tab PO SCH (08:24)
[2016-06-12 08:25] VITALS: BP 112/70; PULSE 68
[2016-06-12 09:03] VITALS: O2SAT 100
[2016-06-12] MEDS: Oxycodone/Acetaminophen 5/325 mg Tab PO PRN (09:57)
--- NOTE | 2016-06-12 10:51 | CP.PCM.DIS ---
Provider - Provider Date of Admission: 05/30/16 16:08 Attending physician: Kain Hannon MD Primary care physician: Lee Li MD Time Spent in preparation of Discharge (in minutes): 30 Diagnosis - Discharge Diagnosis (1) Status post total hip replacement, right Status: Acute Hospital Course - Lab Results Lab Results: Most Recent Lab Values WBC 6.8 K/uL (4.8-10.8) 06/02/16 10:40 RBC 3.12 Mil/uL (3.80-5.20) L 06/02/16 10:40 Hgb 9.6 g/dL (12.0-16.0) L 06/02/16 10:40 Hct 28.3 % (34.0-47.0) L 06/02/16 10:40 MCV 90.9 fl (81.0-99.0) 06/02/16 10:40 MCH 30.9 pg (27.0-31.0) 06/02/16 10:40 MCHC 34.0 g/dL (33.0-37.0) 06/02/16 10:40 RDW 13.0 % (11.5-14.5) 06/02/16 10:40 Plt Count 229 K/uL (130-400) 06/02/16 10:40 MPV 8.3 fl (7.2-11.7) 06/02/16 10:40 Neut % (Auto) 57.4 % (50.0-75.0) 06/02/16 10:40 Lymph % (Auto) 23.4 % (20.0-40.0) 06/02/16 10:40 [place] % (Auto) 12.2 % (0.0-10.0) H 06/02/16 10:40 Eos % (Auto) 5.9 % (0.0-4.0) H 06/02/16 10:40 Baso % (Auto) 1.1 % (0.0-2.0) 06/02/16 10:40 Neut # 3.9 K/uL (1.8-7.0) 06/02/16 10:40 Lymph # 1.6 K/uL (1.0-4.3) 06/02/16 10:40 [place] # 0.8 K/uL (0.0-0.8) 06/02/16 10:40 Eos # 0.4 K/uL (0.0-0.7) 06/02/16 10:40 Baso # 0.1 K/uL (0.0-0.2) 06/02/16 10:40 Sodium 136 mmol/l (132-148) 06/02/16 10:40 Potassium 4.9 MMOL/L (3.6-5.0) 06/02/16 10:40 Chloride 96 mmol/L (98-107) L 06/02/16 10:40 Carbon Dioxide 30 mmol/L (22-30) 06/02/16 10:40 Anion Gap 15 (10-20) 06/02/16 10:40 BUN 13 mg/dl (7-17) 06/02/16 10:40 Creatinine 0.6 mg/dL (0.7-1.2) L 06/02/16 10:40 Est GFR ( Amer) > 60 06/02/16 10:40 Est GFR (Non-Af Amer) > 60 06/02/16 10:40 POC Glucose (mg/dL) 87 mg/dL (65-110) 06/12/16 05:17 Random Glucose 228 mg/dL (65-105) H 06/02/16 10:40 Hemoglobin A1c 7.5 % (4.2-6.5) H 06/02/16 10:40 Calcium 9.2 mg/dL (8.4-10.2) 06/02/16 10:40 Total Bilirubin 0.5 mg/dl (0.2-1.3) 06/02/16 10:40 AST 17 U/L (14-36) 06/02/16 10:40 ALT 33 U/L (9-52) 06/02/16 10:40 Alkaline Phosphatase 94 U/L (38-126) 06/02/16 10:40 Total Protein 6.0 G/DL (6.3-8.2) L 06/02/16 10:40 Albumin 3.0 g/dL (3.5-5.0) L 06/02/16 10:40 Globulin 3.0 gm/dL (2.2-3.9) 06/02/16 10:40 Albumin/Globulin Ratio 1.0 (1.0-2.1) 06/02/16 10:40 Triglycerides 100 mg/DL (0-149) 06/02/16 10:40 Cholesterol 199 mg/dL (0-199) 06/02/16 10:40 LDL Cholesterol Direct 133 mg/dL (0-129) H 06/02/16 10:40 HDL Cholesterol 32 MG/DL (30-70) 06/02/16 10:40 TSH 3rd Generation 1.16 mIU/ML (0.46-4.68) 06/02/16 10:40 - Hospital Course Hospital Course: Pt was admitted to rehab following right hip replacement, did well with therapy and is being discharged home Discharge Exam - Head Exam Head Exam: NORMOCEPHALIC - Eye Exam Eye Exam: Normal appearance, PERRL Pupil Exam: NORMAL ACCOMODATION - ENT Exam ENT Exam: Mucous Membranes Moist - Respiratory Exam Respiratory Exam: NORMAL BREATHING PATTERN - Cardiovascular Exam Cardiovascular Exam: REGULAR RHYTHM, +S1, +S2 - GI/Abdominal Exam GI & Abdominal Exam: Normal Bowel Sounds, Soft - Extremities Exam Additional comments: right hip deirdre removed, neatly dressed - Neurological Exam Neurological exam: Alert, CN II-XII Intact, Oriented x3 - Psychiatric Exam Psychiatric exam: Normal Affect - Skin Skin Exam: Normal Color Discharge Plan - Discharge Medications Prescriptions: Aspirin 325 mg PO DAILY #30 tab Losartan [Cozaar] 25 mg PO DAILY #30 tab SITagliptin [Januvia] 100 mg PO DAILY #30 tab oxyCODONE/Acetaminophen [Percocet 5/325 mg Tab] 1 tab PO PRN PRN #60 tab PRN Reason: Pain, Moderate (4-7) MetFORMIN [glucoPHAGE] 1,000 mg PO BIDWM #60 tab - Follow Up Plan Condition: GOOD Disposition: HOME/ ROUTINE Instructions: Diabetes Mellitus Type 2 in Adults (DC), Precautions after Total Joint Replacement Surgery (DC), Precautions after Total Joint Replacement Surgery (GEN), Joint Replacement Surgery (GEN), Total Hip Replacement (GEN) Additional Instructions: Please call Dr. Gama's office to set up appointment for follow up and surgical clearance Please follow up with your PCP in 2-3weeks . maintain total hip precaution as instructed Referrals: Tiffany Gama MD [Staff Provider] - Kain Hannon MD [Staff Provider] - Lee Li MD [Primary Care Provider] -
== END 2016-06-12 12:00 | disposition home or self-care (01) | DRG 561 ==
LOC: H.TCU 16:08
PROVIDERS: ADMIT Family Medicine; ATTEND Family Medicine
PROC: F07Z9FZ Gait Training/Functional Ambulation Treatment using Assistive, Adaptive, Supportive or Protective Equipment (ICD-10-PCS; principal; 2016-05-30)
PROC: F08Z4FZ Home Management Treatment using Assistive, Adaptive, Supportive or Protective Equipment (ICD-10-PCS; 2016-05-30)
PROC: F07L6FZ Therapeutic Exercise Treatment of Musculoskeletal System - Lower Back / Lower Extremity using Assistive, Adaptive, Supportive or Protective Equipment (ICD-10-PCS; 2016-05-31)
PROC: 3E0234Z Introduction of Serum, Toxoid and Vaccine into Muscle, Percutaneous Approach (ICD-10-PCS; 2016-05-31)
DX: Z47.1 Aftercare following joint replacement surgery (principal); R26.89 Other abnormalities of gait and mobility; E11.9 Type 2 diabetes mellitus without complications; Z96.641 Presence of right artificial hip joint; E66.9 Obesity, unspecified; Z68.38 Body mass index [BMI] 38.0-38.9, adult; K59.00 Constipation, unspecified; Z23 Encounter for immunization; Z87.891 Personal history of nicotine dependence

== ENCOUNTER 2016-06-20 11:27 | Inpatient (IN) | payer OTHER ==
[2016-06-20 11:42] VITALS: BMI 36.5
--- NOTE | 2016-06-20 12:38 | ED PDOC ---
HPI: General Adult Time Seen by Provider: 06/20/16 11:59 Chief Complaint (Nursing): Hip Pain Chief Complaint (Provider): right wound drainage History Per: Patient History/Exam Limitations: no limitations Current Symptoms Are (Timing): Still Present Severity: Moderate Recently: Treated By A Physician, Hospitalized Additional Complaint(s): 66yo female hx DM several weeks s/p R hip replacement via Dr Gama sent from Dr Gama office for wound drainage at right hip incision. Pt states drainage started 4 days ago, worsened, associated w fever 101 2 days ago which has since resolved. Denies new trauma, cough, abd pain or urinary symptoms. Past Medical History Reviewed: Historical Data, Nursing Documentation, Vital Signs Vital Signs: Last Vital Signs Temp 97.3 F L 07/01/16 08:41 Pulse 61 07/01/16 08:41 Resp 20 07/01/16 08:41 BP 130/77 07/01/16 08:41 Pulse Ox 98 07/01/16 08:41 - Medical History PMH: Arthritis, Diabetes Denies: HTN - Surgical History Surgical History: Appendectomy Other surgeries: R hip - Family History Family History: States: Unknown Family Hx - Living Arrangements Living Arrangements: With Family - Social History Current smoker - smoking cessation education provided: No Alcohol: None - Home Medications Home Medications: Ambulatory Orders Medication Instructions Recorded Calcium Citrate/Vitamin D2 1 tab PO BID 05/27/16 [Vishal-Citrate Plus Vitamin D Tab] Glucosamine/Chondro Fernandez A [Cvs 1 tab PO BID 05/27/16 Glucosamine-Chondroitin Tb] Omeprazole 40 mg PO DAILY 05/27/16 Aspirin 325 mg PO DAILY #30 tab 06/12/16 Losartan [Cozaar] 25 mg PO DAILY #30 tab 06/12/16 MetFORMIN [glucoPHAGE] 1,000 mg PO BIDWM #60 tab 06/12/16 SITagliptin [Januvia] 100 mg PO DAILY #30 tab 06/12/16 Acetaminophen [Tylenol 325mg tab] 650 mg PO Q4 PRN #0 tab 06/30/16 Docusate Sodium/Sennosides A 2 tab PO HS tab 06/30/16 [Senokot S 50 MG-8.6 MG] Enoxaparin [Lovenox] 40 mg SC DAILY syr 06/30/16 Ferrous Sulfate [Feosol] 325 mg PO TID tab 06/30/16 Lactulose [Enulose] 10 gm PO DAILY PRN #0 udc 06/30/16 Meropenem [Merrem IV] 1 gm IV Q12 #84 vial 06/30/16 Methocarbamol [Robaxin] 500 mg PO QID tab 06/30/16 Vancomycin 1 GM [Vancomycin 1GM in 750 gm IVPB Q12 #84 bag 06/30/16 Normal Saline Addvantage] oxyCODONE/Acetaminophen [Percocet 1 tab PO Q4 PRN #0 tab 06/30/16 5/325 mg Tab] - Allergies Allergies/Adverse Reactions: Allergies Allergy/AdvReac Type Severity Reaction Status Date / Time No Known Allergies Allergy Verified 06/20/16 11:58 Review of Systems ROS Statement: Except As Marked, All Systems Reviewed And Found Negative Constitutional: Negative for: Fever, Chills Cardiovascular: Negative for: Chest Pain, Palpitations Respiratory: Negative for: Cough, Shortness of Breath Gastrointestinal: Negative for: Nausea, Vomiting Genitourinary Female: Negative for: Dysuria Musculoskeletal: Positive for: Leg Pain, Other (R hip pain). Negative for: Neck Pain Skin: Negative for: Rash, Lesions, Jaundice Neurological: Negative for: Weakness, Numbness, Headache, Dizziness Psych: Negative for: Depression Physical Exam - Reviewed Nursing Documentation Reviewed: Yes Vital Signs Reviewed: Yes - Physical Exam Appears: Positive for: Well, Non-toxic, No Acute Distress Head Exam: Positive for: ATRAUMATIC, NORMAL INSPECTION, NORMOCEPHALIC Skin: Positive for: Normal Color, Warm, DRY Eye Exam: Positive for: EOMI, Normal appearance, PERRL ENT: Positive for: Normal ENT Inspection Neck: Positive for: Normal, Painless ROM Respiratory: Positive for: Normal Breath Sounds. Negative for: Respiratory Distress Extremity: Positive for: Other (R hip incision w purulent drainage, mild surrounding erythema and tenderness). Negative for: Deformity Neurologic/Psych: Positive for: Alert, Oriented. Negative for: Motor/Sensory Deficits - Laboratory Results Result Diagrams: 06/28/16 07:00 06/25/16 06:45 - ECG O2 Sat by Pulse Oximetry: 99 Medical Decision Making Medical Decision Making: D/w Dr Gama, requesting admit Dr Hannon and ID consult. D/w Dr Hannon, admit med surg. Vanco and Zosyn initiated after blood cultures obtained. Disposition - Clinical Impression Clinical Impression: Wound infection - Patient ED Disposition Is Patient to be Admitted: Yes Counseled Patient/Family Regarding: Studies Performed, Diagnosis, Need For Followup - Disposition Disposition Time: 14:30 Condition: FAIR - Pt Status Changed To: Hospital Disposition Of: Inpatient - Admit Certification Admit to Inpatient:: After my assessment, the patient will require hospitalization for at least two midnights. This is because of the severity of symptoms shown, intensity of services needed, and/or the medical risk in this patient being treated as an outpatient. - POA Present On Arrival: Surgical Site Infection
[2016-06-20] MEDS ORDERED: Piperacillin/Tazobact 4.5 GM in Sodium Chloride 0.9% 100 ML IVPB STA (12:40)
[2016-06-20 12:54] LABS: BASO % 0.8 % (0.0-2.0); EOS # 0.2 K/uL (0.0-0.7); EOS % 3.2 % (0.0-4.0); HEMATOCRIT 27.4 % (34.0-47.0); LYMPH # 1.2 K/uL (1.0-4.3); LYMPH % 19.2 % (20.0-40.0); MEAN CELL VOLUME 88.4 fl (81.0-99.0); MEAN CORPUSCULAR HEMOGLOBIN 29.7 pg (27.0-31.0); MEAN CORPUSCULAR HGB CONC 33.6 g/dL (33.0-37.0); MEAN PLATELET VOLUME 8.2 fl (7.2-11.7); MONO # 0.6 K/uL (0.0-0.8); MONO % 9.5 % (0.0-10.0); NEUT # 4.4 K/uL (1.8-7.0); NEUT % 67.3 % (50.0-75.0); NRBC % 0.1 % (0.0-0.0); RED CELL DISTRIBUTION WIDTH 13.8 % (11.5-14.5); WHITE BLOOD COUNT 6.5 K/uL (4.8-10.8)
[2016-06-20 13:02] LABS: ALB/GLOB RATIO 0.9 (1.0-2.1); ALKALINE PHOSPHATASE 122 U/L (38-126); ALT/SGPT 24 U/L (9-52); AST/SGOT 18 U/L (14-36); BILIRUBIN,TOTAL 0.2 mg/dl (0.2-1.3); BLOOD UREA NITROGEN 10 mg/dl (7-17); CALCIUM 9.6 mg/dL (8.4-10.2); CARBON DIOXIDE 27 mmol/L (22-30); CHLORIDE 104 mmol/L (98-107); GFR AFRICAN-AMERICAN > 60; GLUCOSE,RANDOM 99 mg/dL (65-105); POTASSIUM 3.9 MMOL/L (3.6-5.0); SODIUM 144 mmol/l (132-148); TOTAL PROTEIN 6.9 G/DL (6.3-8.2)
[2016-06-20 13:11] LABS: RBC URINE 3 /hpf (0-3); URINE BILIRUBIN SMALL (NEGATIVE); URINE BLOOD NEGATIVE (NEGATIVE); URINE COLOR AMBER (YELLOW); URINE GLUCOSE (UA) NEG (Normal); URINE KETONE TRACE mg/dL (NEGATIVE); URINE LEUKOCYTE ESTERASE NEG Leu/uL (Negative); URINE PROTEIN 30 mg/dL (NEGATIVE); WBC URINE 2 /hpf (0-5)
[2016-06-20] MEDS ORDERED: Piperacillin/Tazobact 3.375 gm Inj IVPB ONE (13:20)
[2016-06-20] MEDS ORDERED: Vancomycin 1 g Inj ONE (13:20)
--- NOTE | 2016-06-20 13:48 | RAD ---
HISTORY: ro infiltrate COMPARISON: Chest x-ray performed 05/15/16 TECHNIQUE: Chest, one view. FINDINGS: LUNGS: No focal consolidation. Please note that chest x-ray has limited sensitivity for the detection of pulmonary masses. PLEURA: No significant pleural effusion identified. No definite pneumothorax . CARDIOVASCULAR: Heart size appears top normal. OSSEOUS STRUCTURES: Degenerative changes. Acromioclavicular arthropathy. VISUALIZED UPPER ABDOMEN: Unremarkable. OTHER FINDINGS: None. IMPRESSION: No focal consolidation, significant pleural effusion, or definite pneumothorax identified.
[2016-06-20] MEDS ORDERED: Oxycodone/Acetaminophen 5/325 mg Tab PO PRN (15:06)
--- NOTE | 2016-06-20 15:19 | CP.PCM.HP ---
<Noa Chavze - Last Filed: 06/20/16 15:55> History of Present Illness - History of Present Illness History of Present Illness: Pt is a 66 y/o female with pmhx of diabetes recently had right hip replacement surgery was discharge home about a week ago, sent by her surgeon for suspected infection of the surgical site; per pt everything was ok until about 3-4 days ago she started noticing a discharge from the surgical site,which has progressively gotten worse, she also spiked a fever todays ago but denies any chest pain, nausea, vomiting, abdominal pain, she reports she fells the right lower extremity is also swollen more than usual Present on Admission - Present on Admission Any Indicators Present on Admission: Yes History of Uncontrolled Diabetes: Yes Review of Systems - Review of Systems All systems: reviewed and no additional remarkable complaints except Review of Systems: Per HPI Past Patient History - Past Medical History & Family History Past Medical History?: Yes - Past Social History Alcohol: None - CARDIAC Hx Hypertension: No - ENDOCRINE/METABOLIC Hx Diabetes Mellitus Type 2: Yes - MUSCULOSKELETAL/RHEUMATOLOGICAL Hx Arthritis: Yes - PSYCHIATRIC Hx Substance Use: No - SURGICAL HISTORY Hx Appendectomy: Yes - ANESTHESIA Hx Anesthesia: Yes Hx Anesthesia Reactions: No Hx Malignant Hyperthermia: No Meds Allergies/Adverse Reactions: Allergies Allergy/AdvReac Type Severity Reaction Status Date / Time No Known Allergies Allergy Verified 06/20/16 11:58 Physical Exam - Head Exam Head Exam: NORMOCEPHALIC - Eye Exam Eye Exam: Normal appearance - ENT Exam ENT Exam: Mucous Membranes Moist - Respiratory Exam Respiratory Exam: Clear to Auscultation Bilateral, NORMAL BREATHING PATTERN - Cardiovascular Exam Cardiovascular Exam: REGULAR RHYTHM, +S1, +S2 - GI/Abdominal Exam GI & Abdominal Exam: Normal Bowel Sounds, Soft. absent: Tenderness - Extremities Exam Extremities exam: Negative for: calf tenderness Additional comments: Right hip incision w purulent drainage, mild surrounding erythema and tenderness - Neurological Exam Neurological exam: Alert, CN II-XII Intact, Oriented x3 - Skin Skin Exam: Normal Color Results - Vital Signs Recent Vital Signs: Last Vital Signs Temp 97.6 F 06/20/16 11:41 Pulse 70 06/20/16 11:41 Resp 18 06/20/16 11:41 BP 120/55 L 06/20/16 11:41 Pulse Ox 99 06/20/16 12:40 - Labs Result Diagrams: 06/20/16 12:45 06/20/16 12:45 Labs: Laboratory Results - last 24 hr 06/20/16 06/20/16 12:45 13:01 WBC 6.5 RBC 3.10 L Hgb 9.2 L Hct 27.4 L MCV 88.4 D MCH 29.7 MCHC 33.6 RDW 13.8 Plt Count 331 D MPV 8.2 Neut % (Auto) 67.3 Lymph % (Auto) 19.2 L [place] % (Auto) 9.5 Eos % (Auto) 3.2 Baso % (Auto) 0.8 Neut # 4.4 Lymph # 1.2 [place] # 0.6 Eos # 0.2 Baso # 0.0 Sodium 144 Potassium 3.9 Chloride 104 Carbon Dioxide 27 Anion Gap 18 BUN 10 Creatinine 0.5 L Est GFR ( Amer) > 60 Est GFR (Non-Af Amer) > 60 Random Glucose 99 Calcium 9.6 Total Bilirubin 0.2 AST 18 ALT 24 Alkaline Phosphatase 122 Total Protein 6.9 Albumin 3.4 L Globulin 3.6 Albumin/Globulin Ratio 0.9 L Urine Color Shania Urine Clarity Slighty-cloudy Urine pH 5.0 Ur Specific Bureau 1.036 H Urine Protein 30 Urine Glucose (UA) Neg Urine Ketones Trace Urine Blood Negative Urine Nitrate Negative Urine Bilirubin Small Urine Urobilinogen 4.0 H Ur Leukocyte Esterase Neg Urine RBC (Auto) 3 Urine Microscopic WBC 2 Ur Squamous Epith Cells 3 Hyaline Casts 0-2 Assessment & Plan - Assessment and Plan (Free Text) Assessment: Pt is a 66 y/o female diabetic being admitted for infection of her right hip replacement Plan: Infection of Right Hip Replacement started on Vanco and Zosyn ID consulted surgeon consulted Pain management as ordered Non-insulin dependent type II diabetic Continue with home meds accuchecks diet- diabetic DVT prohylaxis- lovenox <Kain Hannon - Last Filed: 06/21/16 11:23> Results - Vital Signs Recent Vital Signs: Last Vital Signs Temp 98.2 F 06/21/16 08:52 Pulse 77 06/21/16 08:52 Resp 20 06/21/16 08:52 BP 107/66 06/21/16 08:52 Pulse Ox 93 L 06/21/16 08:52 - Labs Result Diagrams: 06/20/16 12:45 06/20/16 12:45 Labs: Laboratory Results - last 24 hr 06/20/16 06/20/16 06/20/16 12:45 13:01 17:53 WBC 6.5 RBC 3.10 L Hgb 9.2 L Hct 27.4 L MCV 88.4 D MCH 29.7 MCHC 33.6 RDW 13.8 Plt Count 331 D MPV 8.2 Neut % (Auto) 67.3 Lymph % (Auto) 19.2 L [place] % (Auto) 9.5 Eos % (Auto) 3.2 Baso % (Auto) 0.8 Neut # 4.4 Lymph # 1.2 [place] # 0.6 Eos # 0.2 Baso # 0.0 Sodium 144 Potassium 3.9 Chloride 104 Carbon Dioxide 27 Anion Gap 18 BUN 10 Creatinine 0.5 L Est GFR ( Amer) > 60 Est GFR (Non-Af Amer) > 60 POC Glucose (mg/dL) 122 H Random Glucose 99 Calcium 9.6 Total Bilirubin 0.2 AST 18 ALT 24 Alkaline Phosphatase 122 Total Protein 6.9 Albumin 3.4 L Globulin 3.6 Albumin/Globulin Ratio 0.9 L Urine Color Shania Urine Clarity Slighty-cloudy Urine pH 5.0 Ur Specific Bureau 1.036 H Urine Protein 30 Urine Glucose (UA) Neg Urine Ketones Trace Urine Blood Negative Urine Nitrate Negative Urine Bilirubin Small Urine Urobilinogen 4.0 H Ur Leukocyte Esterase Neg Urine RBC (Auto) 3 Urine Microscopic WBC 2 Ur Squamous Epith Cells 3 Hyaline Casts 0-2 06/20/16 06/21/16 21:28 06:11 WBC RBC Hgb Hct MCV MCH MCHC RDW Plt Count MPV Neut % (Auto) Lymph % (Auto) [place] % (Auto) Eos % (Auto) Baso % (Auto) Neut # Lymph # [place] # Eos # Baso # Sodium Potassium Chloride Carbon Dioxide Anion Gap BUN Creatinine Est GFR ( Amer) Est GFR (Non-Af Amer) POC Glucose (mg/dL) 110 116 H Random Glucose Calcium Total Bilirubin AST ALT Alkaline Phosphatase Total Protein Albumin Globulin Albumin/Globulin Ratio Urine Color Urine Clarity Urine pH Ur Specific Bureau Urine Protein Urine Glucose (UA) Urine Ketones Urine Blood Urine Nitrate Urine Bilirubin Urine Urobilinogen Ur Leukocyte Esterase Urine RBC (Auto) Urine Microscopic WBC Ur Squamous Epith Cells Hyaline Casts Assessment & Plan - Assessment and Plan (Free Text) Plan: I was present during evalautionand discussed with Dr Kathy jackson plans ofcare. discussed with Dr Hernandez. called DR Epperson for ID eval. Cont Iv antibiotics.
[2016-06-20] MEDS ORDERED: GLUCOSAMINE PO SCH (17:00)
[2016-06-20] MEDS ORDERED: CHONDRO SU A PO SCH (17:00)
[2016-06-20] MEDS: Piperacillin/Tazobact 3.375 GM in Sodium Chloride 0.9% 100 ML IVPB SCH ×2 (18:03→23:24)
--- NOTE | 2016-06-20 19:55 | CP.PCM.PN ---
Subjective - Date & Time of Evaluation Date of Evaluation: 06/20/16 Time of Evaluation: 19:53 - Subjective Subjective: id note just informed of this consult will see tomorrow continue vancomycin/zosyn for present Objective - Vital Signs/Intake and Output Vital Signs (last 24 hours): Temp Pulse Resp BP Pulse Ox 98.2 F 79 18 115/63 100 06/20/16 18:51 06/20/16 18:51 06/20/16 18:51 06/20/16 18:51 06/20/16 18:51 - Medications Medications: Current Medications Aspirin (Aspirin) 325 mg PO DAILY [facility] Calcium/Vitamin D (Oscal-D 250 Mg-125 Units Tab) 1 tab PO BID [facility] Enoxaparin Sodium (Lovenox) 40 mg SC DAILY [facility] PRN Reason: Protocol Home Med (Glucosamine/Chondro Fernandez A [[facility] Glucosamine-Chondroitin Tb]) 1 tab PO BID [facility] Piperacillin Sod/Tazobactam (Sod 3.375 gm/ Sodium Chloride) 100 mls @ 100 mls/ hr IVPB Q6 [facility] Last Admin: 06/20/16 18:03 Dose: Not Given Vancomycin HCl 1 gm/ Sodium (Chloride) 250 mls @ 166.667 mls/hr IVPB Q12 [facility] Losartan Potassium (Cozaar) 25 mg PO DAILY [facility] Metformin HCl (Glucophage) 1,000 mg PO BIDWM [facility] Oxycodone/Acetaminophen (Percocet 5/325 Mg Tab) 1 tab PO Q4 PRN PRN Reason: Pain, moderate (4-7) Stop: 06/23/16 17:01 Oxycodone/Acetaminophen (Percocet 5/325 Mg Tab) 2 tab PO Q6 PRN PRN Reason: Pain, severe (8-10) Stop: 06/23/16 15:18 Pantoprazole Sodium (Protonix Ec Tab) 40 mg PO DAILY [facility] Sitagliptin Phosphate (Januvia) 100 mg PO DAILY [facility] - Labs Labs: 06/20/16 12:45 06/20/16 12:45
[2016-06-20] MEDS: Oxycodone/Acetaminophen 5/325 mg Tab PO PRN (19:59)
[2016-06-21] MEDS: Piperacillin/Tazobact 3.375 GM in Sodium Chloride 0.9% 100 ML IVPB SCH ×3 (03:40→15:58)
[2016-06-21] MEDS: Oxycodone/Acetaminophen 5/325 mg Tab PO PRN ×4 (04:00→18:46)
[2016-06-21] MEDS: Calcium-Vit D 250 mg-125 Units Tab UD PO SCH ×2 (08:39→16:14)
[2016-06-21] MEDS: Enoxaparin 40 mg Syringe SC SCH (08:39)
[2016-06-21] MEDS: Pantoprazole 40 mg EC Tab PO SCH (08:40)
--- NOTE | 2016-06-21 11:26 | CP.PCM.PN ---
Subjective - Date & Time of Evaluation Date of Evaluation: 06/21/16 Time of Evaluation: 11:24 - Subjective Subjective: Patient is afebrile Still with a lot of drainage,mostly serosanguinous. Has minimal pain on the op site. Objective - Vital Signs/Intake and Output Vital Signs (last 24 hours): Temp Pulse Resp BP Pulse Ox 98.2 F 77 20 107/66 93 L 06/21/16 08:52 06/21/16 08:52 06/21/16 08:52 06/21/16 08:52 06/21/16 08:52 - Medications Medications: Current Medications Aspirin (Aspirin) 325 mg PO DAILY [facility] Last Admin: 06/21/16 08:38 Dose: 325 mg Calcium/Vitamin D (Oscal-D 250 Mg-125 Units Tab) 1 tab PO BID [facility] Last Admin: 06/21/16 08:39 Dose: 1 tab Enoxaparin Sodium (Lovenox) 40 mg SC DAILY [facility] PRN Reason: Protocol Last Admin: 06/21/16 08:39 Dose: 40 mg Home Med (Glucosamine/Chondro Fernandez A [[facility] Glucosamine-Chondroitin Tb]) 1 tab PO BID [facility] Piperacillin Sod/Tazobactam (Sod 3.375 gm/ Sodium Chloride) 100 mls @ 100 mls/ hr IVPB Q6 [facility] Last Admin: 06/21/16 10:28 Dose: 100 mls/hr Vancomycin HCl 1 gm/ Sodium (Chloride) 250 mls @ 166.667 mls/hr IVPB Q12 [facility] Last Admin: 06/21/16 08:40 Dose: 166.667 mls/hr Losartan Potassium (Cozaar) 25 mg PO DAILY [facility] Last Admin: 06/21/16 08:38 Dose: 25 mg Metformin HCl (Glucophage) 1,000 mg PO BIDWM [facility] Last Admin: 06/21/16 08:39 Dose: 1,000 mg Oxycodone/Acetaminophen (Percocet 5/325 Mg Tab) 1 tab PO Q4 PRN PRN Reason: Pain, moderate (4-7) Stop: 06/23/16 17:01 Last Admin: 06/21/16 08:29 Dose: 1 tab Oxycodone/Acetaminophen (Percocet 5/325 Mg Tab) 2 tab PO Q6 PRN PRN Reason: Pain, severe (8-10) Stop: 06/23/16 15:18 Last Admin: 06/20/16 19:59 Dose: 2 tab Pantoprazole Sodium (Protonix Ec Tab) 40 mg PO DAILY [facility] Last Admin: 06/21/16 08:40 Dose: 40 mg Sitagliptin Phosphate (Januvia) 100 mg PO DAILY [facility] Last Admin: 06/21/16 08:39 Dose: 100 mg - Labs Labs: 06/20/16 12:45 06/20/16 12:45 - Head Exam Head Exam: NORMAL INSPECTION - Eye Exam Eye Exam: Normal appearance - ENT Exam ENT Exam: Mucous Membranes Moist - Respiratory Exam Respiratory Exam: Clear to Ausculation Bilateral - Cardiovascular Exam Cardiovascular Exam: REGULAR RHYTHM - GI/Abdominal Exam GI & Abdominal Exam: Normal Bowel Sounds - Extremities Exam Additional comments: serosanguinous discharge on the right hip surg wound Assessment and Plan (1) Wound infection Status: Acute (2) Diabetes mellitus type 2 in obese Status: Acute (3) Status post total hip replacement, right Status: Acute - Assessment and Plan (Free Text) Plan: contmeds follow up I and D of wound discharge cont IV antibiotics
--- NOTE | 2016-06-21 18:03 | CON ---
DATE: 06/21/2016 The patient is on [address], med/surg floor, in room 656. HISTORY OF PRESENT ILLNESS: The patient is a 66-year-old female with a history of diabetes who had a right hip replacement done 22 of May of this year. She also received physiotherapy in [facility]. She went home about a week ago and subsequently was seen by her orthopedist who noted that she had some swelling and possible infection at the surgical site. Three to 4 days ago she started noticing discharge from the suture line and the drainage has got progressively worse. She spiked a fever on the day of admission and stated she had some chills and sweats. PAST MEDICAL HISTORY: Includes diabetes and arthritis. SOCIAL HISTORY: There is no history of alcohol or substance abuse. PHYSICAL EXAMINATION: GENERAL: The patient is alert, cooperative, and oriented to time and place and quite pleasant. HEENT: Within normal limits. NECK: Supple. CHEST: Thorax expansion is equal. HEART: Regular sinus rhythm. LUNGS: Clear. ABDOMEN: Soft, positive bowel sounds. EXTREMITIES: Lower extremities: The right hip incision there is swelling and there is purulent drainage and surrounding erythema and tenderness. The patient experienced pain when I pressed on the area where there was a small pinhole of drainage and subsequently I took a culture from that site. LABORATORY DATA: Show the blood cultures are pending. As noted the wound cultures were just taken. Chemistry: Sodium 144, potassium 3.9, chloride is 104, BUN is 10, creatinine is 0.5. GFR is greater than 60. Blood sugars were reasonable, were 116, 122 and 125. White count is 6.5, hemoglobin 9.2, polys 67 %. Chest x-ray was normal. There is no focal consolidation or pleural effusion or definite pneumothorax noted. IMPRESSION: Wound infection secondary to right hip replacement. Would treat with IV antibiotics for the moment and will need probably an incision and drainage and subsequent antibiotic treatment. At present, I agree with treating with vancomycin and have changed Zosyn to meropenem for additional gram -negative coverage and possibly for resistant gram-negative coverage. Juan Epperson MD cc: [id number] TT: 06/21/2016 18:02:17 Confirmation # [id number] Dictation # [id number] dn DELMY
[2016-06-21] MEDS: Meropenem 1 GM in Sodium Chloride 0.9% 100 ML IVPB SCH (22:00)
[2016-06-22] MEDS: Oxycodone/Acetaminophen 5/325 mg Tab PO PRN ×3 (03:33→16:45)
[2016-06-22 08:12] LABS: BLOOD UREA NITROGEN 6 mg/dl (7-17); CALCIUM 8.9 mg/dL (8.4-10.2); CARBON DIOXIDE 28 mmol/L (22-30); CHLORIDE 105 mmol/L (98-107); GFR AFRICAN-AMERICAN > 60; GLUCOSE,RANDOM 103 mg/dL (65-105); POTASSIUM 3.5 MMOL/L (3.6-5.0); SODIUM 143 mmol/l (132-148)
[2016-06-22] MEDS: Meropenem 1 GM in Sodium Chloride 0.9% 100 ML IVPB SCH ×2 (08:58→20:47)
[2016-06-22] MEDS: Enoxaparin 40 mg Syringe SC SCH (08:58)
[2016-06-22] MEDS: Calcium-Vit D 250 mg-125 Units Tab UD PO SCH ×2 (09:00→16:46)
[2016-06-22] MEDS: Pantoprazole 40 mg EC Tab PO SCH (09:12)
--- NOTE | 2016-06-22 18:05 | CP.PCM.PN ---
Subjective - Date & Time of Evaluation Date of Evaluation: 06/22/16 Time of Evaluation: 18:04 - Subjective Subjective: Patient is feeling better Accucheck is within normal C and S of wound discharge showed no lane Objective - Vital Signs/Intake and Output Vital Signs (last 24 hours): Temp Pulse Resp BP Pulse Ox 98.3 F 64 20 128/77 99 06/22/16 08:39 06/22/16 08:57 06/22/16 08:39 06/22/16 08:57 06/22/16 08:39 - Medications Medications: Current Medications Aspirin (Aspirin) 325 mg PO DAILY [facility] Last Admin: 06/22/16 09:08 Dose: 325 mg Calcium/Vitamin D (Oscal-D 250 Mg-125 Units Tab) 1 tab PO BID [facility] Last Admin: 06/22/16 16:46 Dose: 1 tab Enoxaparin Sodium (Lovenox) 40 mg SC DAILY [facility] PRN Reason: Protocol Last Admin: 06/22/16 08:58 Dose: 40 mg Home Med (Glucosamine/Chondro Fernandez A [[facility] Glucosamine-Chondroitin Tb]) 1 tab PO BID [facility] Vancomycin HCl 1 gm/ Sodium (Chloride) 250 mls @ 166.667 mls/hr IVPB Q12 [facility] Last Admin: 06/22/16 10:33 Dose: 166.667 mls/hr Meropenem 1 gm/ Sodium (Chloride) 100 mls @ 100 mls/hr IVPB Q12 [facility] Last Admin: 06/22/16 08:58 Dose: 100 mls/hr Losartan Potassium (Cozaar) 25 mg PO DAILY [facility] Last Admin: 06/22/16 08:57 Dose: 25 mg Metformin HCl (Glucophage) 1,000 mg PO BIDWM [facility] Last Admin: 06/22/16 16:46 Dose: 1,000 mg Oxycodone/Acetaminophen (Percocet 5/325 Mg Tab) 1 tab PO Q4 PRN PRN Reason: Pain, moderate (4-7) Stop: 06/23/16 17:01 Last Admin: 06/22/16 16:45 Dose: 1 tab Oxycodone/Acetaminophen (Percocet 5/325 Mg Tab) 2 tab PO Q6 PRN PRN Reason: Pain, severe (8-10) Stop: 06/23/16 15:18 Last Admin: 06/21/16 18:46 Dose: 2 tab Pantoprazole Sodium (Protonix Ec Tab) 40 mg PO DAILY [facility] Last Admin: 06/22/16 09:12 Dose: 40 mg Sitagliptin Phosphate (Januvia) 100 mg PO DAILY [facility] Last Admin: 06/22/16 08:58 Dose: 100 mg - Labs Labs: 06/20/16 12:45 06/22/16 05:30 Assessment and Plan (1) Wound infection Status: Acute (2) Diabetes mellitus type 2 in obese Status: Acute (3) Status post total hip replacement, right Status: Acute
[2016-06-23] MEDS: Oxycodone/Acetaminophen 5/325 mg Tab PO PRN ×3 (02:34→20:40)
--- NOTE | 2016-06-23 08:54 | US ---
PROCEDURE: Bilateral lower extremity venous duplex Doppler. HISTORY: r/o DVT COMPARISON: None available. TECHNIQUE: Bilateral common femoral, superficial femoral, popliteal and posterior tibial veins were evaluated. Flow was assessed with color Doppler, compressibility, assessment of phasic flow and augmentation response. FINDINGS: COMMON FEMORAL VEIN: Right CFV: Normal color flow, direction of flow and compressibility. Left CFV: Normal color flow, direction of flow and compressibility. SUPERFICIAL FEMORAL VEIN: Right SFV: Normal color flow, direction of flow and compressibility. Left SFV: Normal color flow, direction of flow and compressibility. POPLITEAL VEIN: Right Popliteal: Normal color flow, direction of flow and compressibility. Left Popliteal: Normal color flow, direction of flow and compressibility. POSTERIOR TIBIAL VEIN: Right PTV: Normal color flow, direction of flow and compressibility. Left PTV: Normal color flow, direction of flow and compressibility. OTHER FINDINGS: None. IMPRESSION: No evidence of deep venous thrombosis.
[2016-06-23] MEDS: Pantoprazole 40 mg EC Tab PO SCH (09:23)
[2016-06-23] MEDS: Calcium-Vit D 250 mg-125 Units Tab UD PO SCH ×2 (09:24→16:51)
[2016-06-23] MEDS: Meropenem 1 GM in Sodium Chloride 0.9% 100 ML IVPB SCH ×2 (09:25→21:02)
[2016-06-23] MEDS: Enoxaparin 40 mg Syringe SC SCH (09:28)
[2016-06-23 14:45] LABS: MEAN CELL VOLUME 88.1 fl (81.0-99.0); MEAN CORPUSCULAR HEMOGLOBIN 29.2 pg (27.0-31.0); MEAN CORPUSCULAR HGB CONC 33.1 g/dL (33.0-37.0); RED CELL DISTRIBUTION WIDTH 13.9 % (11.5-14.5); WHITE BLOOD COUNT 6.1 K/uL (4.8-10.8)
[2016-06-23 15:05] LABS: BLOOD UREA NITROGEN 8 mg/dl (7-17); CARBON DIOXIDE 27 mmol/L (22-30); CHLORIDE 104 mmol/L (98-107); GFR AFRICAN-AMERICAN > 60; GLUCOSE,RANDOM 103 mg/dL (65-105); POTASSIUM 4.2 MMOL/L (3.6-5.0); SODIUM 141 mmol/l (132-148)
[2016-06-24] MEDS ORDERED: Propofol 10 mg/ml Inj (20 ML) ONE ×2 (07:17→10:14)
[2016-06-24] MEDS ORDERED: Midazolam 2 MG/2 ML VIAL ONE (07:17)
[2016-06-24] MEDS ORDERED: Succinylcholine 200 mg/10 ml Inj IV ONE (07:18)
[2016-06-24] MEDS ORDERED: ePHEDrine 50 mg/ml Inj ONE ×3 (07:18→09:57)
[2016-06-24] MEDS ORDERED: Lidocaine 4% (Laryng-O-Jet) Kit MM ONE (07:18)
[2016-06-24] MEDS ORDERED: Bupivacaine 0.5% Inj(30mL) ONE (07:43)
[2016-06-24] MEDS ORDERED: Lidocaine 2% w Epi 1:100,000 Inj IJ ONE (07:43)
[2016-06-24] MEDS ORDERED: Bacitracin Ointment 30 GM TUBE ONE (07:43)
[2016-06-24] MEDS ORDERED: Rocuronium 10 mg/ml (5 ml) ONE (08:05)
[2016-06-24] MEDS: Meropenem 1 GM in Sodium Chloride 0.9% 100 ML IVPB SCH ×2 (09:09→20:46)
[2016-06-24] MEDS: Oxycodone/Acetaminophen 5/325 mg Tab PO PRN ×2 (09:20→20:43)
[2016-06-24] MEDS: Enoxaparin 40 mg Syringe SC SCH (09:22)
[2016-06-24] MEDS: Calcium-Vit D 250 mg-125 Units Tab UD PO SCH ×2 (09:23→16:06)
[2016-06-24] MEDS: Pantoprazole 40 mg EC Tab PO SCH (09:24)
[2016-06-24] MEDS ORDERED: Dexamethasone 4 mg/1 ml ONE (09:35)
[2016-06-24] MEDS ORDERED: Iohexol 300 100 ML IJ ONE (09:45)
--- NOTE | 2016-06-24 11:41 | CP.PCM.PN ---
Subjective - Date & Time of Evaluation Date of Evaluation: 06/24/16 Time of Evaluation: 09:00 - Subjective Subjective: pt seen and examined at bedside, does not have any complaints. will be going down for Ct of her hip today, at the moment plan for OR is on hold Objective - Vital Signs/Intake and Output Vital Signs (last 24 hours): Temp Pulse Resp BP Pulse Ox 98.8 F 75 20 124/75 100 06/24/16 09:09 06/24/16 09:39 06/24/16 09:09 06/24/16 09:39 06/24/16 09:09 - Medications Medications: Current Medications Aspirin (Aspirin) 325 mg PO DAILY [facility] Last Admin: 06/24/16 09:39 Dose: 325 mg Calcium/Vitamin D (Oscal-D 250 Mg-125 Units Tab) 1 tab PO BID [facility] Last Admin: 06/24/16 09:23 Dose: 1 tab Docusate Sodium (Colace) 100 mg PO DAILY PRN PRN Reason: const Enoxaparin Sodium (Lovenox) 40 mg SC DAILY [facility] PRN Reason: Protocol Last Admin: 06/24/16 09:22 Dose: 40 mg Home Med (Glucosamine/Chondro Fernandez A [[facility] Glucosamine-Chondroitin Tb]) 1 tab PO BID [facility] Vancomycin HCl 1 gm/ Sodium (Chloride) 250 mls @ 166.667 mls/hr IVPB Q12 [facility] Last Admin: 06/24/16 09:24 Dose: 166.667 mls/hr Meropenem 1 gm/ Sodium (Chloride) 100 mls @ 100 mls/hr IVPB Q12 [facility] Last Admin: 06/24/16 09:09 Dose: 100 mls/hr Lactulose (Enulose) 10 gm PO DAILY PRN PRN Reason: Constipation Losartan Potassium (Cozaar) 25 mg PO DAILY [facility] Last Admin: 06/24/16 09:39 Dose: 25 mg Metformin HCl (Glucophage) 1,000 mg PO BIDWM [facility] Last Admin: 06/24/16 09:23 Dose: 1,000 mg Oxycodone/Acetaminophen (Percocet 5/325 Mg Tab) 1 tab PO Q4 PRN PRN Reason: Pain, moderate (4-7) Stop: 06/26/16 20:22 Oxycodone/Acetaminophen (Percocet 5/325 Mg Tab) 2 tab PO Q6 PRN PRN Reason: Pain, severe (8-10) Stop: 06/26/16 20:24 Last Admin: 06/24/16 09:20 Dose: 2 tab Pantoprazole Sodium (Protonix Ec Tab) 40 mg PO DAILY [facility] Last Admin: 06/24/16 09:24 Dose: 40 mg Sitagliptin Phosphate (Januvia) 100 mg PO DAILY [facility] Last Admin: 06/24/16 09:39 Dose: 100 mg - Labs Labs: 06/23/16 14:35 06/23/16 14:35 - Constitutional Appears: No Acute Distress - Head Exam Head Exam: NORMOCEPHALIC - Eye Exam Eye Exam: Normal appearance - ENT Exam ENT Exam: Mucous Membranes Moist - Cardiovascular Exam Cardiovascular Exam: REGULAR RHYTHM - Extremities Exam Additional comments: Lower extremity (R) appears swollen compared to left; some tenderness but calf is not tender. HIP incision very tender to touch, possible abscess formation - Neurological Exam Neurological Exam: Alert, Awake, CN II-XII Intact, Oriented x3 Assessment and Plan - Assessment and Plan (Free Text) Assessment: Pt is a 66 y/o female diabetic being admitted for infection of her right hip replacement Plan: Infection of Right Hip Replacement started on Vanco and Meropenem Ultrasound of lower extremity negative for DVT CT of right extremity taken, f/u official read ID following surgeon following Pain management as ordered Non-insulin dependent type II diabetic Continue with home meds accuchecks diet- diabetic DVT prohylaxis- lovenox
--- NOTE | 2016-06-24 12:27 | CT ---
PROCEDURE: CT of the right head with contrast. HISTORY: suspected collection COMPARISON: There is no prior similar study available for comparison. TECHNIQUE: Axial and reformatted coronal and sagittal CT images of the right hip were obtained after IV contrast administration. FINDINGS: The patient status post total right hip replacement. The hardware is seen at appropriate position. There is large struck artifact from the hardware around the right hip region. There is no CT evidence of discrete fluid collection or abscess formation around the right hip. There are foci of fat stranding and soft tissue edema seen at the right aspect of the pelvis and proximal thigh. The right common femoral artery is patent demonstrate mild to moderate atherosclerotic disease. No evidence of acute fracture. IMPRESSION: Status post total right hip replacement. The assessment of the soft tissue is limited due to large streak artifact from the hardware. No evidence of discrete fluid collection or abscess formation. Subcutaneous soft tissue stranding and soft tissue edema seen.
[2016-06-24] MEDS ORDERED: Lactulose 10 gm/15 ml Syrup PO PRN (14:02)
--- NOTE | 2016-06-24 19:04 | CP.PCM.PN ---
Subjective - Date & Time of Evaluation Date of Evaluation: 06/24/16 Time of Evaluation: 18:56 - Subjective Subjective: ID NOTE WENT TO OR THIS AM APPARENTLY WAS NOT OPENED BUT IRRIGAATED AND REDRESSED GRAM NEGATIVE RODS GROWING IN CULTURE BUT NO ID YET WILL CHECK C RESIDENT AND /OR ORTHO TOMORROW DISCUSSED C CT SCAN SHOWS SOFT TISSUE STRANDING AND EDEMA CONTINUE VANOMYCIN AND MEROPENEM Objective - Vital Signs/Intake and Output Vital Signs (last 24 hours): Temp Pulse Resp BP Pulse Ox 98.5 F 64 20 113/74 100 06/24/16 16:45 06/24/16 16:45 06/24/16 16:45 06/24/16 16:45 06/24/16 16:45 - Medications Medications: Current Medications Aspirin (Aspirin) 325 mg PO DAILY [facility] Last Admin: 06/24/16 09:39 Dose: 325 mg Calcium/Vitamin D (Oscal-D 250 Mg-125 Units Tab) 1 tab PO BID [facility] Last Admin: 06/24/16 16:06 Dose: 1 tab Diphenhydramine HCl (Benadryl) 25 mg PO Q6 PRN PRN Reason: Itching / Pruritus Docusate Sodium (Colace) 100 mg PO DAILY PRN PRN Reason: const Last Admin: 06/24/16 16:07 Dose: 100 mg Enoxaparin Sodium (Lovenox) 40 mg SC DAILY [facility] PRN Reason: Protocol Last Admin: 06/24/16 09:22 Dose: 40 mg Home Med (Glucosamine/Chondro Fernandez A [[facility] Glucosamine-Chondroitin Tb]) 1 tab PO BID [facility] Vancomycin HCl 1 gm/ Sodium (Chloride) 250 mls @ 166.667 mls/hr IVPB Q12 [facility] Last Admin: 06/24/16 09:24 Dose: 166.667 mls/hr Meropenem 1 gm/ Sodium (Chloride) 100 mls @ 100 mls/hr IVPB Q12 [facility] Last Admin: 06/24/16 09:09 Dose: 100 mls/hr Lactulose (Enulose) 10 gm PO DAILY PRN PRN Reason: Constipation Losartan Potassium (Cozaar) 25 mg PO DAILY [facility] Last Admin: 06/24/16 09:39 Dose: 25 mg Metformin HCl (Glucophage) 1,000 mg PO BIDWM [facility] Last Admin: 06/24/16 16:06 Dose: 1,000 mg Oxycodone/Acetaminophen (Percocet 5/325 Mg Tab) 1 tab PO Q4 PRN PRN Reason: Pain, moderate (4-7) Stop: 06/26/16 20:22 Oxycodone/Acetaminophen (Percocet 5/325 Mg Tab) 2 tab PO Q6 PRN PRN Reason: Pain, severe (8-10) Stop: 06/26/16 20:24 Last Admin: 06/24/16 09:20 Dose: 2 tab Pantoprazole Sodium (Protonix Ec Tab) 40 mg PO DAILY [facility] Last Admin: 06/24/16 09:24 Dose: 40 mg Silver Sulfadiazine (Silvadene 1% 20 Gm) 0 ea TOP TID [facility] Sitagliptin Phosphate (Januvia) 100 mg PO DAILY [facility] Last Admin: 06/24/16 09:39 Dose: 100 mg - Labs Labs: 06/23/16 14:35 06/23/16 14:35
[2016-06-25 08:11] LABS: HEMATOCRIT 25.7 % (34.0-47.0); MEAN CORPUSCULAR HEMOGLOBIN 29.5 pg (27.0-31.0); MEAN CORPUSCULAR HGB CONC 33.5 g/dL (33.0-37.0); RED CELL DISTRIBUTION WIDTH 13.9 % (11.5-14.5); WHITE BLOOD COUNT 5.7 K/uL (4.8-10.8)
[2016-06-25 08:30] LABS: BLOOD UREA NITROGEN 6 mg/dl (7-17); CARBON DIOXIDE 26 mmol/L (22-30); CHLORIDE 107 mmol/L (98-107); GFR AFRICAN-AMERICAN > 60; GLUCOSE,RANDOM 99 mg/dL (65-105); POTASSIUM 4.2 MMOL/L (3.6-5.0); SODIUM 146 mmol/l (132-148)
[2016-06-25] MEDS: Meropenem 1 GM in Sodium Chloride 0.9% 100 ML IVPB SCH ×2 (09:00→21:39)
[2016-06-25] MEDS: Oxycodone/Acetaminophen 5/325 mg Tab PO PRN ×2 (09:24→21:43)
[2016-06-25] MEDS: Pantoprazole 40 mg EC Tab PO SCH (09:33)
[2016-06-25] MEDS: Silver Sulfadiazine 1% Cream (20 gm) TOP SCH ×3 (09:34→16:53)
[2016-06-25] MEDS: Enoxaparin 40 mg Syringe SC SCH (09:35)
[2016-06-25] MEDS: Calcium-Vit D 250 mg-125 Units Tab UD PO SCH ×2 (09:36→16:51)
--- NOTE | 2016-06-25 16:16 | CP.PCM.PN ---
Subjective - Date & Time of Evaluation Date of Evaluation: 06/25/16 Time of Evaluation: 10:45 - Subjective Subjective: pt seen and examined at bed side this morning, went to OR but no surgery was done, wound was clean instead and re-dressed neatly. states she is ambulating and feeling a lot better. no fevers, nausea , chills or vomiting. Objective - Vital Signs/Intake and Output Vital Signs (last 24 hours): Temp Pulse Resp BP Pulse Ox 98.4 F 69 20 122/66 96 06/25/16 07:53 06/25/16 09:37 06/25/16 07:53 06/25/16 09:37 06/25/16 07:53 - Medications Medications: Current Medications Aspirin (Aspirin) 325 mg PO DAILY [facility] Last Admin: 06/25/16 09:48 Dose: 325 mg Calcium/Vitamin D (Oscal-D 250 Mg-125 Units Tab) 1 tab PO BID [facility] Last Admin: 06/25/16 09:36 Dose: 1 tab Diphenhydramine HCl (Benadryl) 25 mg PO Q6 PRN PRN Reason: Itching / Pruritus Docusate Sodium (Colace) 100 mg PO DAILY PRN PRN Reason: const Last Admin: 06/25/16 09:33 Dose: 100 mg Enoxaparin Sodium (Lovenox) 40 mg SC DAILY [facility] PRN Reason: Protocol Last Admin: 06/25/16 09:35 Dose: 40 mg Meropenem 1 gm/ Sodium (Chloride) 100 mls @ 100 mls/hr IVPB Q12 [facility] Last Admin: 06/25/16 09:00 Dose: 100 mls/hr Vancomycin HCl 750 mg/ Sodium (Chloride) 250 mls @ 250 mls/hr IVPB Q12H [facility] Last Admin: 06/25/16 09:48 Dose: 250 mls/hr Lactulose (Enulose) 10 gm PO DAILY PRN PRN Reason: Constipation Losartan Potassium (Cozaar) 25 mg PO DAILY [facility] Last Admin: 06/25/16 09:37 Dose: 25 mg Metformin HCl (Glucophage) 1,000 mg PO BIDWM [facility] Last Admin: 06/25/16 09:36 Dose: 1,000 mg Oxycodone/Acetaminophen (Percocet 5/325 Mg Tab) 1 tab PO Q4 PRN PRN Reason: Pain, moderate (4-7) Stop: 06/26/16 20:22 Last Admin: 06/24/16 20:43 Dose: 1 tab Oxycodone/Acetaminophen (Percocet 5/325 Mg Tab) 2 tab PO Q6 PRN PRN Reason: Pain, severe (8-10) Stop: 06/26/16 20:24 Last Admin: 06/25/16 09:24 Dose: 2 tab Pantoprazole Sodium (Protonix Ec Tab) 40 mg PO DAILY [facility] Last Admin: 06/25/16 09:33 Dose: 40 mg Silver Sulfadiazine (Silvadene 1% 20 Gm) 0 ea TOP TID [facility] Last Admin: 06/25/16 13:29 Dose: 1 applic Sitagliptin Phosphate (Januvia) 100 mg PO DAILY [facility] Last Admin: 06/25/16 09:35 Dose: 100 mg - Labs Labs: 06/25/16 06:45 06/25/16 06:45 - Constitutional Appears: Non-toxic, No Acute Distress - Head Exam Head Exam: NORMOCEPHALIC - Eye Exam Eye Exam: Normal appearance, PERRL Pupil Exam: NORMAL ACCOMODATION - ENT Exam ENT Exam: Mucous Membranes Moist - Respiratory Exam Respiratory Exam: Clear to Ausculation Bilateral, NORMAL BREATHING PATTERN. absent: Rhonchi, Wheezes - Cardiovascular Exam Cardiovascular Exam: REGULAR RHYTHM, +S1, +S2 - GI/Abdominal Exam GI & Abdominal Exam: Soft, Normal Bowel Sounds. absent: Tenderness - Extremities Exam Extremities Exam: Pedal Edema Additional comments: lower extremity with 2+ edema right hip neatly dressed, blisters noted at night of previous tape - Neurological Exam Neurological Exam: Alert, Awake, CN II-XII Intact, Oriented x3 Assessment and Plan - Assessment and Plan (Free Text) Assessment: Pt is a 66 y/o female diabetic being admitted for infection of her right hip replacement Plan: Infection of Right Hip Replacement started on Vanco and Meropenem Ultrasound of lower extremity negative for DVT CT of right extremity taken, f/u official read ID following surgeon following Pain management as ordered Non-insulin dependent type II diabetic Continue with home meds accuchecks diet- diabetic DVT prohylaxis- lovenox Plan: Infection of Right Hip Replacement started on Vanco and Meropenem Ultrasound of lower extremity negative for DVT CT of right extremity taken - shows no evidence of abscess ID states pt will require 4-6wks of IV antibiotic surgeon following Pain management as ordered Non-insulin dependent type II diabetic Continue with home meds accuchecks diet- diabetic DVT prohylaxis- lovenox
--- NOTE | 2016-06-25 16:57 | CP.PCM.PN ---
Subjective - Date & Time of Evaluation Date of Evaluation: 06/25/16 Time of Evaluation: 17:00 - Subjective Subjective: ID NOTE CULTURE FROM WOUND GREW ENTEROBACTER C GOOD SENSITIVITIES .WILL CONTINUE MEROPENEM ALSO VANCOMYCIN.SHOULD HAVE 4 TO 6 WEEKS IV ANTIBIOTIC COVERAGE Objective - Vital Signs/Intake and Output Vital Signs (last 24 hours): Temp Pulse Resp BP Pulse Ox 98.2 F 64 18 114/67 100 06/25/16 16:37 06/25/16 16:37 06/25/16 16:37 06/25/16 16:37 06/25/16 16:37 - Medications Medications: Current Medications Aspirin (Aspirin) 325 mg PO DAILY [facility] Last Admin: 06/25/16 09:48 Dose: 325 mg Calcium/Vitamin D (Oscal-D 250 Mg-125 Units Tab) 1 tab PO BID [facility] Last Admin: 06/25/16 16:51 Dose: 1 tab Diphenhydramine HCl (Benadryl) 25 mg PO Q6 PRN PRN Reason: Itching / Pruritus Docusate Sodium (Colace) 100 mg PO DAILY PRN PRN Reason: const Last Admin: 06/25/16 09:33 Dose: 100 mg Enoxaparin Sodium (Lovenox) 40 mg SC DAILY [facility] PRN Reason: Protocol Last Admin: 06/25/16 09:35 Dose: 40 mg Meropenem 1 gm/ Sodium (Chloride) 100 mls @ 100 mls/hr IVPB Q12 [facility] Last Admin: 06/25/16 09:00 Dose: 100 mls/hr Vancomycin HCl 750 mg/ Sodium (Chloride) 250 mls @ 250 mls/hr IVPB Q12H [facility] Last Admin: 06/25/16 09:48 Dose: 250 mls/hr Lactulose (Enulose) 10 gm PO DAILY PRN PRN Reason: Constipation Losartan Potassium (Cozaar) 25 mg PO DAILY [facility] Last Admin: 06/25/16 09:37 Dose: 25 mg Metformin HCl (Glucophage) 1,000 mg PO BIDWM [facility] Last Admin: 06/25/16 16:51 Dose: 1,000 mg Oxycodone/Acetaminophen (Percocet 5/325 Mg Tab) 1 tab PO Q4 PRN PRN Reason: Pain, moderate (4-7) Stop: 06/26/16 20:22 Last Admin: 06/24/16 20:43 Dose: 1 tab Oxycodone/Acetaminophen (Percocet 5/325 Mg Tab) 2 tab PO Q6 PRN PRN Reason: Pain, severe (8-10) Stop: 06/26/16 20:24 Last Admin: 06/25/16 09:24 Dose: 2 tab Pantoprazole Sodium (Protonix Ec Tab) 40 mg PO DAILY [facility] Last Admin: 06/25/16 09:33 Dose: 40 mg Silver Sulfadiazine (Silvadene 1% 20 Gm) 0 ea TOP TID [facility] Last Admin: 06/25/16 13:29 Dose: 1 applic Sitagliptin Phosphate (Januvia) 100 mg PO DAILY [facility] Last Admin: 06/25/16 09:35 Dose: 100 mg - Labs Labs: 06/25/16 06:45 06/25/16 06:45
[2016-06-26] MEDS: Enoxaparin 40 mg Syringe SC SCH (09:19)
[2016-06-26] MEDS: Pantoprazole 40 mg EC Tab PO SCH (09:20)
[2016-06-26] MEDS: Calcium-Vit D 250 mg-125 Units Tab UD PO SCH ×2 (09:20→16:19)
[2016-06-26] MEDS: Silver Sulfadiazine 1% Cream (20 gm) TOP SCH ×3 (09:24→16:20)
[2016-06-26] MEDS: Oxycodone/Acetaminophen 5/325 mg Tab PO PRN ×2 (09:49→19:27)
[2016-06-26] MEDS ORDERED: Lidocaine 1% Inj (20ml) ONE (11:11)
--- NOTE | 2016-06-26 11:42 | PCM.SURG1 ---
Surgeon's Initial Post Op Note - Surgeon's Notes Surgeon: [employer] Rep: None Type of Anesthesia: Local Pre-Operative Diagnosis: Infection. Operative Findings: Patent right basilic vein Post-Operative Diagnosis: Infection Operation Performed: Right basilic vein 4F SL 35cm PICC placed. Specimen/Specimens Removed: None Estimated Blood Loss: EBL {In ML}: 1 Date of Surgery/Procedure: 06/26/16 Time of Surgery/Procedure: 11:20
--- NOTE | 2016-06-26 11:50 | VASCULAR ---
Procedure: Ultrasound and fluoroscopically placed Right upper extremity PICC. Clinical indication: Long-term IV antibiotics. Technique: The relative risks and indications of the procedure were explained to the patient and written informed consent obtained. The patient was placed supine on the angiographic table and the right arm prepped and draped in the usual sterile fashion. A tourniquet was applied to the right axilla. 1% lidocaine was used to anesthetize the skin and soft tissues at the puncture site above the elbow. The right basilic vein was punctured under direct ultrasound guidance with a micropuncture set. A permanent image was stored. A 0.018 guidewire was advanced centrally and used to measure the length to the SVC/RA junction. A 4 Lebanese single-lumen PICC, size 35 cm, was advanced to the SVC/RA junction under fluoroscopic guidance. The catheter was flushed and secured. The patient tolerated the procedure well. Postprocedure chest image was obtained to ensure location of the catheter tip at the SVC right atrial junction. Impression: Ultrasound and fluoroscopically placed right upper extremity PICC. A 4 Lebanese single-lumen PICC, size 35 cm was advanced to the SVC/RA junction. PICC ready for use.
--- NOTE | 2016-06-26 12:20 | CP.PCM.PN ---
Subjective - Date & Time of Evaluation Date of Evaluation: 06/26/16 Time of Evaluation: 10:35 - Subjective Subjective: Pt seen and examined at bed side, does not have any complaints. told me her reasons for not going to the PICC line yesterday but is ok with going today. No acute events overnight. Objective - Vital Signs/Intake and Output Vital Signs (last 24 hours): Temp Pulse Resp BP Pulse Ox 98.8 F 72 18 150/73 99 06/26/16 11:42 06/26/16 11:42 06/26/16 11:42 06/26/16 11:42 06/26/16 11:42 - Medications Medications: Current Medications Aspirin (Aspirin) 325 mg PO DAILY [facility] Last Admin: 06/26/16 09:28 Dose: 325 mg Calcium/Vitamin D (Oscal-D 250 Mg-125 Units Tab) 1 tab PO BID [facility] Last Admin: 06/26/16 09:20 Dose: 1 tab Diphenhydramine HCl (Benadryl) 25 mg PO Q6 PRN PRN Reason: Itching / Pruritus Docusate Sodium (Colace) 100 mg PO DAILY PRN PRN Reason: const Last Admin: 06/26/16 09:22 Dose: 100 mg Enoxaparin Sodium (Lovenox) 40 mg SC DAILY [facility] PRN Reason: Protocol Last Admin: 06/26/16 09:19 Dose: 40 mg Ferrous Sulfate (Feosol) 325 mg PO TID [facility] Meropenem 1 gm/ Sodium (Chloride) 100 mls @ 100 mls/hr IVPB Q12 [facility] Last Admin: 06/25/16 21:39 Dose: 100 mls/hr Vancomycin HCl 750 mg/ Sodium (Chloride) 250 mls @ 250 mls/hr IVPB Q12H [facility] Last Admin: 06/26/16 09:50 Dose: 250 mls/hr Lactulose (Enulose) 10 gm PO DAILY PRN PRN Reason: Constipation Losartan Potassium (Cozaar) 25 mg PO DAILY [facility] Last Admin: 06/26/16 09:20 Dose: 25 mg Metformin HCl (Glucophage) 1,000 mg PO BIDWM [facility] Last Admin: 06/26/16 09:22 Dose: 1,000 mg Oxycodone/Acetaminophen (Percocet 5/325 Mg Tab) 1 tab PO Q4 PRN PRN Reason: Pain, moderate (4-7) Stop: 06/26/16 20:22 Last Admin: 06/24/16 20:43 Dose: 1 tab Oxycodone/Acetaminophen (Percocet 5/325 Mg Tab) 2 tab PO Q6 PRN PRN Reason: Pain, severe (8-10) Stop: 06/26/16 20:24 Last Admin: 06/26/16 09:49 Dose: 2 tab Pantoprazole Sodium (Protonix Ec Tab) 40 mg PO DAILY [facility] Last Admin: 06/26/16 09:20 Dose: 40 mg Senna/Docusate Sodium (Senokot S 50 Mg-8.6 Mg) 2 tab PO HS [facility] Silver Sulfadiazine (Silvadene 1% 20 Gm) 0 ea TOP TID [facility] Last Admin: 06/26/16 09:24 Dose: 1 applic Sitagliptin Phosphate (Januvia) 100 mg PO DAILY [facility] Last Admin: 06/26/16 09:22 Dose: 100 mg - Labs Labs: 06/25/16 06:45 06/25/16 06:45 - Constitutional Appears: Non-toxic, No Acute Distress - Head Exam Head Exam: NORMOCEPHALIC - Eye Exam Eye Exam: Normal appearance - ENT Exam ENT Exam: Mucous Membranes Moist - Respiratory Exam Respiratory Exam: Clear to Ausculation Bilateral, NORMAL BREATHING PATTERN. absent: Rhonchi, Wheezes - Cardiovascular Exam Cardiovascular Exam: REGULAR RHYTHM, +S1, +S2 - GI/Abdominal Exam GI & Abdominal Exam: Soft, Normal Bowel Sounds. absent: Tenderness - Extremities Exam Additional comments: surgical site neatly dressed, not soaked with discharge - Neurological Exam Neurological Exam: Alert, Awake, CN II-XII Intact, Oriented x3 Assessment and Plan - Assessment and Plan (Free Text) Assessment: Pt is a 66 y/o female diabetic being admitted for infection of her right hip replacement Plan: Infection of Right Hip Replacement started on Vanco and Meropenem Ultrasound of lower extremity negative for DVT CT of right extremity taken, no abscess seen ID following recommends 4-6wks of antibiotics surgeon will like to observe pt till Thursday to ensure there is no discharge to warrant taking her back to OR draining Pain management as ordered Anemia Lovenox on hold started on iron pills constipation prevention- senokot and colace Non-insulin dependent type II diabetic Continue with home meds accuchecks diet- diabetic DVT prohylaxis- scds, aspirin full dose Discharge Disposition: Placement found for pt, however, surgeon would like to keep pt in house to Thursday to reassess if taking pt back to the OR is necessary
[2016-06-26] MEDS: Meropenem 1 GM in Sodium Chloride 0.9% 100 ML IVPB SCH ×2 (12:38→21:14)
[2016-06-26] MEDS ORDERED: Oxycodone/Acetaminophen 5/325 mg Tab PO PRN (22:09)
[2016-06-26] MEDS ORDERED: Oxycodone/Acetaminophen 5/325 mg Tab PO ONE (22:28)
[2016-06-26] MEDS: Docusate-Senna 50 mg-8.6 mg Tab PO SCH (23:06)
[2016-06-27 08:29] LABS: HEMATOCRIT 25.8 % (34.0-47.0); MEAN CELL VOLUME 88.7 fl (81.0-99.0); MEAN CORPUSCULAR HEMOGLOBIN 28.7 pg (27.0-31.0); MEAN CORPUSCULAR HGB CONC 32.3 g/dL (33.0-37.0); RED CELL DISTRIBUTION WIDTH 14.3 % (11.5-14.5); WHITE BLOOD COUNT 5.5 K/uL (4.8-10.8)
[2016-06-27] MEDS: Oxycodone/Acetaminophen 5/325 mg Tab PO PRN (09:13)
[2016-06-27] MEDS: Pantoprazole 40 mg EC Tab PO SCH (09:41)
[2016-06-27] MEDS: Calcium-Vit D 250 mg-125 Units Tab UD PO SCH ×2 (09:42→18:44)
[2016-06-27] MEDS: Meropenem 1 GM in Sodium Chloride 0.9% 100 ML IVPB SCH ×2 (09:42→21:28)
[2016-06-27] MEDS: Silver Sulfadiazine 1% Cream (20 gm) TOP SCH ×3 (09:58→18:46)
--- NOTE | 2016-06-27 16:32 | CP.PCM.PN ---
Subjective - Date & Time of Evaluation Date of Evaluation: 06/27/16 Time of Evaluation: 16:28 - Subjective Subjective: ID NOTE PATIENT SCHEDULED FOR OR TOMORROW WILL CHECKVANCOMYCIN TROUGH CONTINUE MEROPENEM/VANCOMYCIN Objective - Vital Signs/Intake and Output Vital Signs (last 24 hours): Temp Pulse Resp BP Pulse Ox 98.5 F 62 20 130/80 98 06/27/16 16:26 06/27/16 16:26 06/27/16 16:26 06/27/16 16:26 06/27/16 16:26 - Medications Medications: Current Medications Aspirin (Aspirin) 325 mg PO DAILY [facility] Last Admin: 06/27/16 10:06 Dose: 325 mg Calcium/Vitamin D (Oscal-D 250 Mg-125 Units Tab) 1 tab PO BID [facility] Last Admin: 06/27/16 09:42 Dose: 1 tab Diphenhydramine HCl (Benadryl) 25 mg PO Q6 PRN PRN Reason: Itching / Pruritus Docusate Sodium (Colace) 100 mg PO DAILY PRN PRN Reason: const Last Admin: 06/27/16 09:40 Dose: 100 mg Enoxaparin Sodium (Lovenox) 40 mg SC DAILY [facility] PRN Reason: Protocol Last Admin: 06/26/16 09:19 Dose: 40 mg Ferrous Sulfate (Feosol) 325 mg PO TID [facility] Last Admin: 06/27/16 13:15 Dose: 325 mg Meropenem 1 gm/ Sodium (Chloride) 100 mls @ 100 mls/hr IVPB Q12 [facility] Last Admin: 06/27/16 09:42 Dose: 100 mls/hr Vancomycin HCl 750 mg/ Sodium (Chloride) 250 mls @ 250 mls/hr IVPB Q12H [facility] Last Admin: 06/27/16 09:56 Dose: 250 mls/hr Lactulose (Enulose) 10 gm PO DAILY PRN PRN Reason: Constipation Losartan Potassium (Cozaar) 25 mg PO DAILY [facility] Last Admin: 06/27/16 09:40 Dose: 25 mg Metformin HCl (Glucophage) 1,000 mg PO BIDWM [facility] Last Admin: 06/27/16 09:40 Dose: 1,000 mg Methocarbamol (Robaxin) 500 mg PO QID [facility] Oxycodone/Acetaminophen (Percocet 5/325 Mg Tab) 1 tab PO Q4 PRN PRN Reason: Pain, moderate (4-7) Stop: 06/29/16 22:10 Oxycodone/Acetaminophen (Percocet 5/325 Mg Tab) 2 tab PO Q6 PRN PRN Reason: Pain, severe (8-10) Stop: 06/29/16 22:10 Last Admin: 06/27/16 09:13 Dose: 2 tab Pantoprazole Sodium (Protonix Ec Tab) 40 mg PO DAILY [facility] Last Admin: 06/27/16 09:41 Dose: 40 mg Senna/Docusate Sodium (Senokot S 50 Mg-8.6 Mg) 2 tab PO HS [facility] Last Admin: 06/26/16 23:06 Dose: 2 tab Silver Sulfadiazine (Silvadene 1% 20 Gm) 0 ea TOP TID [facility] Last Admin: 06/27/16 09:58 Dose: 1 applic Sitagliptin Phosphate (Januvia) 100 mg PO DAILY [facility] Last Admin: 06/27/16 09:40 Dose: 100 mg - Labs Labs: 06/27/16 05:30 06/25/16 06:45
--- NOTE | 2016-06-27 16:54 | CP.PCM.PN ---
Subjective - Date & Time of Evaluation Date of Evaluation: 06/27/16 Time of Evaluation: 10:40 - Subjective Subjective: Pt seen and examined at bedside, does not have any complaints. just wanted to know what her discharge plan is Objective - Vital Signs/Intake and Output Vital Signs (last 24 hours): Temp Pulse Resp BP Pulse Ox 98.5 F 62 20 130/80 98 06/27/16 16:26 06/27/16 16:26 06/27/16 16:26 06/27/16 16:26 06/27/16 16:26 - Medications Medications: Current Medications Aspirin (Aspirin) 325 mg PO DAILY [facility] Last Admin: 06/27/16 10:06 Dose: 325 mg Calcium/Vitamin D (Oscal-D 250 Mg-125 Units Tab) 1 tab PO BID [facility] Last Admin: 06/27/16 09:42 Dose: 1 tab Diphenhydramine HCl (Benadryl) 25 mg PO Q6 PRN PRN Reason: Itching / Pruritus Docusate Sodium (Colace) 100 mg PO DAILY PRN PRN Reason: const Last Admin: 06/27/16 09:40 Dose: 100 mg Enoxaparin Sodium (Lovenox) 40 mg SC DAILY [facility] PRN Reason: Protocol Last Admin: 06/26/16 09:19 Dose: 40 mg Ferrous Sulfate (Feosol) 325 mg PO TID [facility] Last Admin: 06/27/16 13:15 Dose: 325 mg Meropenem 1 gm/ Sodium (Chloride) 100 mls @ 100 mls/hr IVPB Q12 [facility] Last Admin: 06/27/16 09:42 Dose: 100 mls/hr Vancomycin HCl 750 mg/ Sodium (Chloride) 250 mls @ 250 mls/hr IVPB Q12H [facility] Last Admin: 06/27/16 09:56 Dose: 250 mls/hr Lactulose (Enulose) 10 gm PO DAILY PRN PRN Reason: Constipation Losartan Potassium (Cozaar) 25 mg PO DAILY [facility] Last Admin: 06/27/16 09:40 Dose: 25 mg Metformin HCl (Glucophage) 1,000 mg PO BIDWM [facility] Last Admin: 06/27/16 09:40 Dose: 1,000 mg Methocarbamol (Robaxin) 500 mg PO QID [facility] Oxycodone/Acetaminophen (Percocet 5/325 Mg Tab) 1 tab PO Q4 PRN PRN Reason: Pain, moderate (4-7) Stop: 06/29/16 22:10 Oxycodone/Acetaminophen (Percocet 5/325 Mg Tab) 2 tab PO Q6 PRN PRN Reason: Pain, severe (8-10) Stop: 06/29/16 22:10 Last Admin: 06/27/16 09:13 Dose: 2 tab Pantoprazole Sodium (Protonix Ec Tab) 40 mg PO DAILY [facility] Last Admin: 06/27/16 09:41 Dose: 40 mg Senna/Docusate Sodium (Senokot S 50 Mg-8.6 Mg) 2 tab PO HS [facility] Last Admin: 06/26/16 23:06 Dose: 2 tab Silver Sulfadiazine (Silvadene 1% 20 Gm) 0 ea TOP TID [facility] Last Admin: 06/27/16 09:58 Dose: 1 applic Sitagliptin Phosphate (Januvia) 100 mg PO DAILY [facility] Last Admin: 06/27/16 09:40 Dose: 100 mg - Labs Labs: 06/27/16 05:30 06/25/16 06:45 - Constitutional Appears: Non-toxic, No Acute Distress - Head Exam Head Exam: NORMOCEPHALIC - Eye Exam Eye Exam: Normal appearance - ENT Exam ENT Exam: Mucous Membranes Moist - Respiratory Exam Respiratory Exam: Clear to Ausculation Bilateral, NORMAL BREATHING PATTERN - Cardiovascular Exam Cardiovascular Exam: REGULAR RHYTHM, +S1, +S2 - GI/Abdominal Exam GI & Abdominal Exam: Soft, Normal Bowel Sounds - Extremities Exam Extremities Exam: Joint Swelling, Pedal Edema. absent: Calf Tenderness Additional comments: right hip neatly dressed. - Neurological Exam Neurological Exam: Alert, Awake, CN II-XII Intact, Oriented x3 - Psychiatric Exam Psychiatric exam: Normal Affect Assessment and Plan - Assessment and Plan (Free Text) Assessment: Pt is a 66 y/o female diabetic being admitted for infection of her right hip replacement Plan: Infection of Right Hip Replacement Scheduled for OR in the AM started on Vanco and Meropenem Ultrasound of lower extremity negative for DVT CT of right extremity taken, no abscess seen ID following recommends 4-6wks of antibiotics Pain management as ordered Anemia type and screen done 1 unit of blood ordered to be transfused prior to surgery repeat cbc in the Am started on iron pills constipation prevention- senokot and colace Non-insulin dependent type II diabetic Continue with home meds accuchecks diet- NPO at midnight for OR diabetic after DVT prohylaxis- scds, aspirin full dose Discharge Disposition: Placement found for rehab, will be discharged after OR
[2016-06-27] MEDS: Methocarbamol 500 MG Tab PO SCH ×2 (18:52→22:30)
[2016-06-27] MEDS: Docusate-Senna 50 mg-8.6 mg Tab PO SCH (22:30)
[2016-06-28] MEDS ORDERED: Propofol 10 mg/ml Inj (20 ML) ONE (07:04)
[2016-06-28] MEDS ORDERED: Neostigmine Methylsulfate 2 MG/2 ML ML IV ONE (07:05)
[2016-06-28] MEDS ORDERED: Midazolam 2 MG/2 ML VIAL ONE (07:05)
[2016-06-28] MEDS ORDERED: Succinylcholine 200 mg/10 ml Inj IV ONE (07:05)
[2016-06-28] MEDS ORDERED: Rocuronium 10 mg/ml (5 ml) ONE (07:05)
[2016-06-28] MEDS ORDERED: Lidocaine Hydrochloride 5 ML INJ ONE (07:05)
[2016-06-28] MEDS ORDERED: Lidocaine 4% (Laryng-O-Jet) Kit MM ONE (07:05)
[2016-06-28] MEDS ORDERED: Phenylephrine 10 mg/ml Inj ONE (07:11)
[2016-06-28 07:37] LABS: HEMATOCRIT 31.9 % (34.0-47.0); MEAN CELL VOLUME 87.6 fl (81.0-99.0); MEAN CORPUSCULAR HEMOGLOBIN 28.8 pg (27.0-31.0); MEAN CORPUSCULAR HGB CONC 32.8 g/dL (33.0-37.0); WHITE BLOOD COUNT 6.7 K/uL (4.8-10.8)
[2016-06-28] MEDS ORDERED: Lactated Ringer's 1,000 ML IV ONE (08:10)
[2016-06-28 08:36] LABS: PARTIAL THROMBOPLASTIN TIME 28.4 SECONDS (23.3-32.5)
[2016-06-28] MEDS ORDERED: Silver Sulfadiazine 1% CREAM (50 gm) ONE (09:07)
[2016-06-28] MEDS ORDERED: Vancomycin 1 g Inj IVPB ONE (10:00)
--- NOTE | 2016-06-28 10:01 | PCM.SURG1 ---
Surgeon's Initial Post Op Note - Surgeon's Notes Surgeon: Dr. Lomas Configuration Management Consultant: Dr. Mary Jo Whitney PGY-1 Type of Anesthesia: General LMA Anesthesia Administered By: Dr. Merchant Pre-Operative Diagnosis: Right hip infection Operative Findings: Materials: Betadine soaked DSD, Warner, 2-0 Vicryl, 3-0 Vicryl Post-Operative Diagnosis: same Operation Performed: Right Hip Incision and Drainage Specimen/Specimens Removed: Deep wound culture Estimated Blood Loss: EBL {In ML}: 35 Blood Products Given: N/A Drains Used: No Drains Post-Op Condition: Good Date of Surgery/Procedure: 06/28/16 Time of Surgery/Procedure: 08:55
[2016-06-28] MEDS: HYDROmorphone 0.5 mg/0.5 ml ISec IVP PRN ×4 (10:05→10:40)
--- NOTE | 2016-06-28 10:06 | PCM.SURG1 ---
Surgeon's Initial Post Op Note - Surgeon's Notes Surgeon: Cesilia Clod Puller: Dr Adams Type of Anesthesia: General Endo Anesthesia Administered By: Dr Merchant Pre-Operative Diagnosis: R hip infection Operative Findings: superficial R hip infection. communuication with hip joint Post-Operative Diagnosis: as above Operation Performed: arthrotomy- irrigation debridemnt R Hip. excision skin/ subcutaneoius tissue. irrigation/debridement Specimen/Specimens Removed: skin/subcutaneous tissue. joint fluid. superficial drainage Estimated Blood Loss: EBL {In ML}: 35 Blood Products Given: N/A Drains Used: No Drains Post-Op Condition: Good Date of Surgery/Procedure: 06/28/16 Time of Surgery/Procedure: 08:50 (time in room 8:10/anaesthesia induction time 8 :10)
[2016-06-28] MEDS ORDERED: Oxycodone/Acetaminophen 5/325 mg Tab PO PRN (10:40)
--- NOTE | 2016-06-28 11:00 | RAD ---
Right hip Status post infection drainage. Ankle Two view of the pelvis and the right hip. Comparison: CT from 06/24/2016. Findings: Right hip total hip replacement. Overlying soft tissue obscures osseous detail. No gross evidence of periprosthetic lucency. No fracture. Left hip suboptimally evaluated. Impression: Status post infection drainage.
[2016-06-28] MEDS: Oxycodone/Acetaminophen 5/325 mg Tab PO PRN ×2 (13:02→18:34)
[2016-06-28] MEDS: Meropenem 1 GM in Sodium Chloride 0.9% 100 ML IVPB SCH ×2 (14:05→22:41)
[2016-06-28] MEDS: Pantoprazole 40 mg EC Tab PO SCH (14:12)
[2016-06-28] MEDS: Methocarbamol 500 MG Tab PO SCH ×4 (14:12→22:43)
[2016-06-28] MEDS: Calcium-Vit D 250 mg-125 Units Tab UD PO SCH ×2 (14:12→17:33)
[2016-06-28] MEDS: Silver Sulfadiazine 1% Cream (20 gm) TOP SCH ×2 (14:13→17:33)
[2016-06-28] MEDS: Enoxaparin 40 mg Syringe SC SCH ×2 (14:14→22:44)
[2016-06-28] MEDS: Lactated Ringer's 1,000 ML IV SCH (20:00)
[2016-06-28] MEDS: Docusate-Senna 50 mg-8.6 mg Tab PO SCH (22:43)
[2016-06-29] MEDS: Oxycodone/Acetaminophen 5/325 mg Tab PO PRN ×4 (00:07→21:35)
[2016-06-29] MEDS: Lactated Ringer's 1,000 ML IV SCH (06:00)
[2016-06-29] MEDS: Methocarbamol 500 MG Tab PO SCH ×4 (08:41→22:26)
[2016-06-29] MEDS: Pantoprazole 40 mg EC Tab PO SCH (08:41)
[2016-06-29] MEDS: Calcium-Vit D 250 mg-125 Units Tab UD PO SCH ×2 (08:42→17:49)
[2016-06-29] MEDS: Meropenem 1 GM in Sodium Chloride 0.9% 100 ML IVPB SCH ×2 (08:49→20:42)
[2016-06-29] MEDS: Silver Sulfadiazine 1% Cream (20 gm) TOP SCH ×3 (09:00→17:51)
--- NOTE | 2016-06-29 09:38 | CP.PCM.PN ---
Subjective - Date & Time of Evaluation Date of Evaluation: 06/29/16 Time of Evaluation: 09:35 - Subjective Subjective: S- pt comfortable and in extremely good spirits at time of encounter Objective - Vital Signs/Intake and Output Vital Signs (last 24 hours): Temp Pulse Resp BP Pulse Ox 98 F 66 20 157/78 H 99 06/29/16 07:54 06/29/16 08:43 06/29/16 07:54 06/29/16 08:43 06/29/16 07:54 - Medications Medications: Current Medications Acetaminophen (Tylenol 325mg Tab) 650 mg PO Q4 PRN PRN Reason: Pain, Mild (1-3) Aspirin (Aspirin) 325 mg PO DAILY [facility] Last Admin: 06/29/16 08:49 Dose: 325 mg Calcium/Vitamin D (Oscal-D 250 Mg-125 Units Tab) 1 tab PO BID [facility] Last Admin: 06/29/16 08:42 Dose: 1 tab Diphenhydramine HCl (Benadryl) 25 mg PO Q6 PRN PRN Reason: Itching / Pruritus Docusate Sodium (Colace) 100 mg PO DAILY PRN PRN Reason: const Last Admin: 06/27/16 09:40 Dose: 100 mg Enoxaparin Sodium (Lovenox) 40 mg SC DAILY [facility] PRN Reason: Protocol Last Admin: 06/28/16 14:14 Dose: Not Given Enoxaparin Sodium (Lovenox) 40 mg SC DAILY [facility] PRN Reason: Protocol Last Admin: 06/28/16 22:44 Dose: 40 mg Ferrous Sulfate (Feosol) 325 mg PO TID [facility] Last Admin: 06/29/16 08:43 Dose: 325 mg Meropenem 1 gm/ Sodium (Chloride) 100 mls @ 100 mls/hr IVPB Q12 [facility] Last Admin: 06/29/16 08:49 Dose: 100 mls/hr Vancomycin HCl 750 mg/ Sodium (Chloride) 250 mls @ 250 mls/hr IVPB Q12H [facility] Last Admin: 06/28/16 22:42 Dose: 250 mls/hr Lactated Ringer's (Lactated Ringer's) 1,000 mls @ 100 mls/hr IV .Q10H [facility] Last Admin: 06/29/16 06:00 Dose: Not Given Lactulose (Enulose) 10 gm PO DAILY PRN PRN Reason: Constipation Losartan Potassium (Cozaar) 25 mg PO DAILY [facility] Last Admin: 06/29/16 08:43 Dose: 25 mg Metformin HCl (Glucophage) 1,000 mg PO BIDWM [facility] Last Admin: 06/29/16 08:42 Dose: 1,000 mg Methocarbamol (Robaxin) 500 mg PO QID [facility] Last Admin: 06/29/16 08:41 Dose: 500 mg Oxycodone/Acetaminophen (Percocet 5/325 Mg Tab) 1 tab PO Q4 PRN PRN Reason: Pain, moderate (4-7) Stop: 06/29/16 22:10 Oxycodone/Acetaminophen (Percocet 5/325 Mg Tab) 2 tab PO Q6 PRN PRN Reason: Pain, severe (8-10) Stop: 06/29/16 22:10 Last Admin: 06/29/16 08:39 Dose: 2 tab Oxycodone/Acetaminophen (Percocet 5/325 Mg Tab) 1 tab PO Q4 PRN PRN Reason: Pain, moderate (4-7) Stop: 07/01/16 10:41 Pantoprazole Sodium (Protonix Ec Tab) 40 mg PO DAILY [facility] Last Admin: 06/29/16 08:41 Dose: 40 mg Senna/Docusate Sodium (Senokot S 50 Mg-8.6 Mg) 2 tab PO HS [facility] Last Admin: 06/28/16 22:43 Dose: 2 tab Silver Sulfadiazine (Silvadene 1% 20 Gm) 0 ea TOP TID [facility] Last Admin: 06/28/16 17:33 Dose: Not Given Sitagliptin Phosphate (Januvia) 100 mg PO DAILY [facility] Last Admin: 06/29/16 08:42 Dose: 100 mg - Labs Labs: 06/28/16 07:00 06/25/16 06:45 PT 11.5 SECONDS (9.6-11.2) H 06/28/16 05:30 INR 1.11 (0.92-1.08) H 06/28/16 05:30 APTT 28.4 SECONDS (23.3-32.5) 06/28/16 05:30 - Additional Findings Additional findings: Objective stance/gait- defrred R hip dressing dry and intact N/V intact pt with minimal post op discomfort post op Xrays- reveal acceptable position of construct Assessment and Plan - Assessment and Plan (Free Text) Assessment: A-s/p I+D superficial wound infection R hip with evidence of sinus traxt to hip joint P- orthopedically stable recommend 6 wks IV abioos feel likely that prosthesios can be retained case discussed with Dr Epperson/Dr Gama sign case back to DR Gama
--- NOTE | 2016-06-29 12:49 | CP.PCM.PN ---
Subjective - Date & Time of Evaluation Date of Evaluation: 06/28/16 Time of Evaluation: 08:30 - Subjective Subjective: Patient stable Had blood transfusion Stable for surgical revision/ I and D. Objective - Vital Signs/Intake and Output Vital Signs (last 24 hours): Temp Pulse Resp BP Pulse Ox 98 F 66 20 157/78 H 99 06/29/16 07:54 06/29/16 08:43 06/29/16 07:54 06/29/16 08:43 06/29/16 07:54 - Medications Medications: Current Medications Acetaminophen (Tylenol 325mg Tab) 650 mg PO Q4 PRN PRN Reason: Pain, Mild (1-3) Aspirin (Aspirin) 325 mg PO DAILY [facility] Last Admin: 06/29/16 08:49 Dose: 325 mg Calcium/Vitamin D (Oscal-D 250 Mg-125 Units Tab) 1 tab PO BID [facility] Last Admin: 06/29/16 08:42 Dose: 1 tab Diphenhydramine HCl (Benadryl) 25 mg PO Q6 PRN PRN Reason: Itching / Pruritus Docusate Sodium (Colace) 100 mg PO DAILY PRN PRN Reason: const Last Admin: 06/27/16 09:40 Dose: 100 mg Enoxaparin Sodium (Lovenox) 40 mg SC DAILY [facility] PRN Reason: Protocol Last Admin: 06/28/16 14:14 Dose: Not Given Enoxaparin Sodium (Lovenox) 40 mg SC DAILY [facility] PRN Reason: Protocol Last Admin: 06/28/16 22:44 Dose: 40 mg Ferrous Sulfate (Feosol) 325 mg PO TID [facility] Last Admin: 06/29/16 08:43 Dose: 325 mg Meropenem 1 gm/ Sodium (Chloride) 100 mls @ 100 mls/hr IVPB Q12 [facility] Last Admin: 06/29/16 08:49 Dose: 100 mls/hr Vancomycin HCl 750 mg/ Sodium (Chloride) 250 mls @ 250 mls/hr IVPB Q12H [facility] Last Admin: 06/29/16 09:55 Dose: 250 mls/hr Lactated Ringer's (Lactated Ringer's) 1,000 mls @ 100 mls/hr IV .Q10H [facility] Last Admin: 06/29/16 06:00 Dose: Not Given Lactulose (Enulose) 10 gm PO DAILY PRN PRN Reason: Constipation Losartan Potassium (Cozaar) 25 mg PO DAILY [facility] Last Admin: 06/29/16 08:43 Dose: 25 mg Metformin HCl (Glucophage) 1,000 mg PO BIDWM [facility] Last Admin: 06/29/16 08:42 Dose: 1,000 mg Methocarbamol (Robaxin) 500 mg PO QID [facility] Last Admin: 06/29/16 08:41 Dose: 500 mg Oxycodone/Acetaminophen (Percocet 5/325 Mg Tab) 1 tab PO Q4 PRN PRN Reason: Pain, moderate (4-7) Stop: 06/29/16 22:10 Oxycodone/Acetaminophen (Percocet 5/325 Mg Tab) 2 tab PO Q6 PRN PRN Reason: Pain, severe (8-10) Stop: 06/29/16 22:10 Last Admin: 06/29/16 08:39 Dose: 2 tab Oxycodone/Acetaminophen (Percocet 5/325 Mg Tab) 1 tab PO Q4 PRN PRN Reason: Pain, moderate (4-7) Stop: 07/01/16 10:41 Pantoprazole Sodium (Protonix Ec Tab) 40 mg PO DAILY [facility] Last Admin: 06/29/16 08:41 Dose: 40 mg Senna/Docusate Sodium (Senokot S 50 Mg-8.6 Mg) 2 tab PO HS [facility] Last Admin: 06/28/16 22:43 Dose: 2 tab Silver Sulfadiazine (Silvadene 1% 20 Gm) 0 ea TOP TID [facility] Last Admin: 06/28/16 17:33 Dose: Not Given Sitagliptin Phosphate (Januvia) 100 mg PO DAILY [facility] Last Admin: 06/29/16 08:42 Dose: 100 mg - Labs Labs: 06/28/16 07:00 06/25/16 06:45 PT 11.5 SECONDS (9.6-11.2) H 06/28/16 05:30 INR 1.11 (0.92-1.08) H 06/28/16 05:30 APTT 28.4 SECONDS (23.3-32.5) 06/28/16 05:30 Assessment and Plan (1) Wound infection Status: Acute (2) Diabetes mellitus type 2 in obese Status: Acute (3) Status post total hip replacement, right Status: Acute
--- NOTE | 2016-06-29 12:50 | CP.PCM.PN ---
Subjective - Date & Time of Evaluation Date of Evaluation: 06/29/16 Time of Evaluation: 12:49 - Subjective Subjective: patient has slight pain Has no fever. Note slightly elevated BP. Objective - Vital Signs/Intake and Output Vital Signs (last 24 hours): Temp Pulse Resp BP Pulse Ox 98 F 66 20 157/78 H 99 06/29/16 07:54 06/29/16 08:43 06/29/16 07:54 06/29/16 08:43 06/29/16 07:54 - Medications Medications: Current Medications Acetaminophen (Tylenol 325mg Tab) 650 mg PO Q4 PRN PRN Reason: Pain, Mild (1-3) Aspirin (Aspirin) 325 mg PO DAILY [facility] Last Admin: 06/29/16 08:49 Dose: 325 mg Calcium/Vitamin D (Oscal-D 250 Mg-125 Units Tab) 1 tab PO BID [facility] Last Admin: 06/29/16 08:42 Dose: 1 tab Diphenhydramine HCl (Benadryl) 25 mg PO Q6 PRN PRN Reason: Itching / Pruritus Docusate Sodium (Colace) 100 mg PO DAILY PRN PRN Reason: const Last Admin: 06/27/16 09:40 Dose: 100 mg Enoxaparin Sodium (Lovenox) 40 mg SC DAILY [facility] PRN Reason: Protocol Last Admin: 06/28/16 14:14 Dose: Not Given Enoxaparin Sodium (Lovenox) 40 mg SC DAILY [facility] PRN Reason: Protocol Last Admin: 06/28/16 22:44 Dose: 40 mg Ferrous Sulfate (Feosol) 325 mg PO TID [facility] Last Admin: 06/29/16 08:43 Dose: 325 mg Meropenem 1 gm/ Sodium (Chloride) 100 mls @ 100 mls/hr IVPB Q12 [facility] Last Admin: 06/29/16 08:49 Dose: 100 mls/hr Vancomycin HCl 750 mg/ Sodium (Chloride) 250 mls @ 250 mls/hr IVPB Q12H [facility] Last Admin: 06/29/16 09:55 Dose: 250 mls/hr Lactated Ringer's (Lactated Ringer's) 1,000 mls @ 100 mls/hr IV .Q10H [facility] Last Admin: 06/29/16 06:00 Dose: Not Given Lactulose (Enulose) 10 gm PO DAILY PRN PRN Reason: Constipation Losartan Potassium (Cozaar) 25 mg PO DAILY [facility] Last Admin: 06/29/16 08:43 Dose: 25 mg Metformin HCl (Glucophage) 1,000 mg PO BIDWM [facility] Last Admin: 06/29/16 08:42 Dose: 1,000 mg Methocarbamol (Robaxin) 500 mg PO QID [facility] Last Admin: 06/29/16 08:41 Dose: 500 mg Oxycodone/Acetaminophen (Percocet 5/325 Mg Tab) 1 tab PO Q4 PRN PRN Reason: Pain, moderate (4-7) Stop: 06/29/16 22:10 Oxycodone/Acetaminophen (Percocet 5/325 Mg Tab) 2 tab PO Q6 PRN PRN Reason: Pain, severe (8-10) Stop: 06/29/16 22:10 Last Admin: 06/29/16 08:39 Dose: 2 tab Oxycodone/Acetaminophen (Percocet 5/325 Mg Tab) 1 tab PO Q4 PRN PRN Reason: Pain, moderate (4-7) Stop: 07/01/16 10:41 Pantoprazole Sodium (Protonix Ec Tab) 40 mg PO DAILY [facility] Last Admin: 06/29/16 08:41 Dose: 40 mg Senna/Docusate Sodium (Senokot S 50 Mg-8.6 Mg) 2 tab PO HS [facility] Last Admin: 06/28/16 22:43 Dose: 2 tab Silver Sulfadiazine (Silvadene 1% 20 Gm) 0 ea TOP TID [facility] Last Admin: 06/28/16 17:33 Dose: Not Given Sitagliptin Phosphate (Januvia) 100 mg PO DAILY [facility] Last Admin: 06/29/16 08:42 Dose: 100 mg - Labs Labs: 06/28/16 07:00 06/25/16 06:45 PT 11.5 SECONDS (9.6-11.2) H 06/28/16 05:30 INR 1.11 (0.92-1.08) H 06/28/16 05:30 APTT 28.4 SECONDS (23.3-32.5) 06/28/16 05:30 Assessment and Plan (1) Wound infection Status: Acute (2) Diabetes mellitus type 2 in obese Status: Acute (3) Status post total hip replacement, right Status: Acute
[2016-06-29] MEDS: Enoxaparin 40 mg Syringe SC SCH ×2 (13:11→17:48)
--- NOTE | 2016-06-29 17:53 | CP.PCM.PN ---
Subjective - Date & Time of Evaluation Date of Evaluation: 06/29/16 Time of Evaluation: 17:44 - Subjective Subjective: ID NOTE PATIENT HAD IRRIGATION AND DEBRIDEMENT OF RIGHT HIP WILL NEED TOTAL OF 6 WEEKS OF IV ANTIBIOTIC RX VANCOMYCIN TROUGH ORDERED Objective - Vital Signs/Intake and Output Vital Signs (last 24 hours): Temp Pulse Resp BP Pulse Ox 98 F 79 20 125/79 96 06/29/16 13:00 06/29/16 13:00 06/29/16 13:00 06/29/16 13:00 06/29/16 13:00 - Medications Medications: Current Medications Acetaminophen (Tylenol 325mg Tab) 650 mg PO Q4 PRN PRN Reason: Pain, Mild (1-3) Aspirin (Aspirin) 325 mg PO DAILY [facility] Last Admin: 06/29/16 08:49 Dose: 325 mg Calcium/Vitamin D (Oscal-D 250 Mg-125 Units Tab) 1 tab PO BID [facility] Last Admin: 06/29/16 08:42 Dose: 1 tab Diphenhydramine HCl (Benadryl) 25 mg PO Q6 PRN PRN Reason: Itching / Pruritus Docusate Sodium (Colace) 100 mg PO DAILY PRN PRN Reason: const Last Admin: 06/27/16 09:40 Dose: 100 mg Enoxaparin Sodium (Lovenox) 40 mg SC DAILY [facility] PRN Reason: Protocol Last Admin: 06/29/16 13:11 Dose: 40 mg Enoxaparin Sodium (Lovenox) 40 mg SC DAILY [facility] PRN Reason: Protocol Last Admin: 06/28/16 22:44 Dose: 40 mg Ferrous Sulfate (Feosol) 325 mg PO TID [facility] Last Admin: 06/29/16 13:11 Dose: 325 mg Meropenem 1 gm/ Sodium (Chloride) 100 mls @ 100 mls/hr IVPB Q12 [facility] Last Admin: 06/29/16 08:49 Dose: 100 mls/hr Vancomycin HCl 750 mg/ Sodium (Chloride) 250 mls @ 250 mls/hr IVPB Q12H [facility] Last Admin: 06/29/16 09:55 Dose: 250 mls/hr Lactated Ringer's (Lactated Ringer's) 1,000 mls @ 100 mls/hr IV .Q10H [facility] Last Admin: 06/29/16 06:00 Dose: Not Given Lactulose (Enulose) 10 gm PO DAILY PRN PRN Reason: Constipation Losartan Potassium (Cozaar) 25 mg PO DAILY [facility] Last Admin: 06/29/16 08:43 Dose: 25 mg Metformin HCl (Glucophage) 1,000 mg PO BIDWM [facility] Last Admin: 06/29/16 08:42 Dose: 1,000 mg Methocarbamol (Robaxin) 500 mg PO QID [facility] Last Admin: 06/29/16 13:11 Dose: 500 mg Oxycodone/Acetaminophen (Percocet 5/325 Mg Tab) 1 tab PO Q4 PRN PRN Reason: Pain, moderate (4-7) Stop: 06/29/16 22:10 Oxycodone/Acetaminophen (Percocet 5/325 Mg Tab) 2 tab PO Q6 PRN PRN Reason: Pain, severe (8-10) Stop: 06/29/16 22:10 Last Admin: 06/29/16 15:11 Dose: 2 tab Oxycodone/Acetaminophen (Percocet 5/325 Mg Tab) 1 tab PO Q4 PRN PRN Reason: Pain, moderate (4-7) Stop: 07/01/16 10:41 Pantoprazole Sodium (Protonix Ec Tab) 40 mg PO DAILY [facility] Last Admin: 06/29/16 08:41 Dose: 40 mg Senna/Docusate Sodium (Senokot S 50 Mg-8.6 Mg) 2 tab PO HS [facility] Last Admin: 06/28/16 22:43 Dose: 2 tab Silver Sulfadiazine (Silvadene 1% 20 Gm) 0 ea TOP TID [facility] Last Admin: 06/28/16 17:33 Dose: Not Given Sitagliptin Phosphate (Januvia) 100 mg PO DAILY [facility] Last Admin: 06/29/16 08:42 Dose: 100 mg - Labs Labs: 06/28/16 07:00 06/25/16 06:45 PT 11.5 SECONDS (9.6-11.2) H 06/28/16 05:30 INR 1.11 (0.92-1.08) H 06/28/16 05:30 APTT 28.4 SECONDS (23.3-32.5) 06/28/16 05:30
--- NOTE | 2016-06-29 19:44 | OP ---
PROCEDURE DATE: 06/28/2016 PREOPERATIVE DIAGNOSES: Superficial versus deep sepsis right hip, status post total hip replacement. POSTOPERATIVE DIAGNOSES: Superficial versus deep sepsis right hip, status post total hip replacement. PROCEDURES: 1. Arthrotomy, right hip. Partial synovectomy. 2. Incision and drainage, right hip. 3. Removal of foreign body. 4. Excision of skin and subcutaneous tissue. SURGEON: Amador Lomas MD DEPARTMENT MGR: Dr. Jacoby Whitney. ANESTHESIA: General endotracheal anesthesia, Dr. Merchant. COMPLICATIONS: None. DRAINS: None. BLOOD LOSS: Approximately 30 mL. OPERATIVE INDICATION: The patient is a woman who was operated by Dr. Domenico Gama on 06/02. The patient underwent an uncomplicated total hip replacement, and had developed drainage postoperatively at the rehab facility, and was readmitted. Workup commenced. The culture showed Enterobacter. The drainage did not subside. Dr. Gama was called out of town. I evaluated the patient and discussed the patient with him and a semi-emergent I and D was decided upon. Pros, cons, risks and benefits were discussed at length with the patient and her , _Colin____. The possibility of mechanical failure, infection, thromboembolic disease, secondary or tertiary surgery was discussed. The concept of even in the face of an I and D later secondary removal of components may be necessary, possibility of insertion of an antibiotic spacer and possibly even revision discussed. OPERATIVE PROCEDURE: After having obtained informed consent in the above fashion, after having identified side, site and procedure and a critical pause/ timeout, after the satisfactory induction of the anesthetic, the patient was identified and was placed in a direct lateral decubitus position with the right side up. All bony prominences were well padded. A towel roll was placed in the axilla. All bony prominences were well padded. The right lower extremity was prepped and draped in the usual fashion for hip surgery. After sterilely prepping and draping, after having positioned the patient, after having identified side, site and procedure and a critical pause/timeout, the patient identified as the correct patient in the lateral decubitus position, the initial incision is extended 3 fingerbreadths proximally and to the mid aspect of the wound. The area of drainage is in the proximal third of the wound, it is draining at the time of prepping and draping. At this point in time, after having identified side, site and procedure and a critical pause/timeout, an ellipse of skin is excised extending 3 fingerbreadths proximally. It should be noted that there was some skin excoriation and blistering on the anterior aspect of the wound and superior to the wound. The skin incision was carried down through the skin and subcutaneous tissue and a bit of muscle. This is excised. At this point in time, the underlying fascia leatha is identified as is the gluteus norma. Careful dissection was carried down and at this point in time, there was found to be sharp egress of fluid, which was someone murky in appearance. This was sent for culture, aerobic, anaerobic, AFB and fungal cultures x 2 and a stat Gram stain with number of white cells per high power field is requested. The arthrotomy having been accomplished, there was found to be a sinus tract, which had been established down to the hip joint. At this point in time, a partial synovectomy of that tissue was accomplished, arthrotomy of the hip and synovectomy of the hip. This having been accomplished , great care was taken to control hemostasis. The patient has been on anticoagulants, but again the procedure is semi-emergent in nature. The hemostasis is controlled with the Aquamantys. The arthrotomy is closed as is the sinus tract with interrupted FiberWire. The wound is thoroughly irrigated. Closure is in layers with Vicryl and Quill. It should be noted that an extensive debridement of tissue was accomplished. Foreign bodies were noted. Several retained sutures were removed and those foreign bodies were removed. Extensive debridement is accomplished after synovectomy having been accomplished and the tract had been excised and closed. Further closure is in layers after removal of foreign body, again with interrupted Vicryl and 0 Quill followed by Vicryl and deirdre for skin. Aggressive hemostasis had been accomplished and meticulous hemostasis had been accomplished so as not to require a Hemovac drain, which we did not want to use for fear of introducing bacteria into the wound. This having been accomplished, deirdre were used for closure. A dressing is with Silvadene for the blisters and half Betadine and half saline soaked sponges for compression dressing.for the wqound proper The patient was transferred from the operating table to the stretcher, having tolerated the procedure well. Postoperative x-ray reveals acceptable position of the construct with no evidence of change from the prior postoperative x-ray. Amador Lomas MD cc: [id number] TT: 06/29/2016 19:44:07 devin BROCK
[2016-06-29] MEDS: Docusate-Senna 50 mg-8.6 mg Tab PO SCH (22:26)
[2016-06-30] MEDS: Oxycodone/Acetaminophen 5/325 mg Tab PO PRN ×3 (06:01→20:45)
[2016-06-30] MEDS ORDERED: Oxycodone/Acetaminophen 5/325 mg Tab PO ONE (09:10)
[2016-06-30] MEDS: Meropenem 1 GM in Sodium Chloride 0.9% 100 ML IVPB SCH ×2 (09:30→20:46)
[2016-06-30] MEDS: Calcium-Vit D 250 mg-125 Units Tab UD PO SCH ×2 (09:53→17:10)
[2016-06-30] MEDS: Pantoprazole 40 mg EC Tab PO SCH (09:53)
[2016-06-30] MEDS: Methocarbamol 500 MG Tab PO SCH ×4 (09:54→21:36)
[2016-06-30] MEDS: Enoxaparin 40 mg Syringe SC SCH (12:59)
--- NOTE | 2016-06-30 13:49 | PN ---
DATE: 06/30/2016 SUBJECTIVE: The patient is a 66-year-old female. She is 2 days status post irrigation and debrideme nt of right hip wound by Dr. Amador Lomas. The patient is currently doing well. Denies any fever or chills. Denies any excessive wound drainage. Denies any paresthesias or motor weakness. Curren tly comfortable. OBJECTIVE: GENERAL: The patient is currently afebrile. VITAL SIGNS: Temperature 98.4, heart rate of 62, blood pressure 140/66, respiration rate of 20. On labs from yesterday, white count of 6.7, hemoglobin of 10.5, and hematocrit of 31.9. SKIN: The patient's incision site is clean, dry. Minimal drainage. Neurovascularly intact distally . PLAN: The patient is stable for discharge. She will be followed. We will follow the cultures. Cur rently, all the gram stains are negative. The patient's final wound culture from superficial wound c ulture had grown Enterobacter. She is currently on IV antibiotics. ID will follow and recommend IV antibiotics. Today, patient is stable to discharge to rehab and I will see the patient back in 1 wee k in my office for wound check. Domenico Gama MD cc: [id number] TT: 06/30/2016 13:48:34 Confirmation # [id number] Dictation # [id number]
[2016-06-30] MEDS ORDERED: Simethicone 80 mg Chewtab PO PRN (21:06)
[2016-06-30] MEDS: Docusate-Senna 50 mg-8.6 mg Tab PO SCH (21:36)
[2016-06-30 21:53] VITALS: RESP 20
[2016-07-01] MEDS: Lactated Ringer's 1,000 ML IV SCH (08:17)
[2016-07-01] MEDS: Oxycodone/Acetaminophen 5/325 mg Tab PO PRN (08:20)
[2016-07-01] MEDS: Enoxaparin 40 mg Syringe SC SCH ×2 (08:21)
[2016-07-01] MEDS: Calcium-Vit D 250 mg-125 Units Tab UD PO SCH (08:22)
[2016-07-01] MEDS: Methocarbamol 500 MG Tab PO SCH ×2 (08:22→12:00)
[2016-07-01] MEDS: Pantoprazole 40 mg EC Tab PO SCH (08:23)
[2016-07-01 08:42] VITALS: BP 130/77; PULSE 61; TEMP 97.3
--- NOTE | 2016-07-01 09:01 | CP.PCM.PN ---
Subjective - Date & Time of Evaluation Date of Evaluation: 06/30/16 Time of Evaluation: 09:00 - Subjective Subjective: Patient is doing well Has minimal pain Objective - Vital Signs/Intake and Output Vital Signs (last 24 hours): Temp Pulse Resp BP Pulse Ox 97.3 F L 61 20 130/77 98 07/01/16 08:41 07/01/16 08:41 07/01/16 08:41 07/01/16 08:41 07/01/16 08:41 - Medications Medications: Current Medications Acetaminophen (Tylenol 325mg Tab) 650 mg PO Q4 PRN PRN Reason: Pain, Mild (1-3) Aspirin (Aspirin) 325 mg PO DAILY [facility] Last Admin: 07/01/16 08:26 Dose: 325 mg Calcium/Vitamin D (Oscal-D 250 Mg-125 Units Tab) 1 tab PO BID [facility] Last Admin: 07/01/16 08:22 Dose: 1 tab Diphenhydramine HCl (Benadryl) 25 mg PO Q6 PRN PRN Reason: Itching / Pruritus Last Admin: 06/30/16 12:53 Dose: 25 mg Docusate Sodium (Colace) 100 mg PO DAILY PRN PRN Reason: const Last Admin: 07/01/16 08:22 Dose: 100 mg Enoxaparin Sodium (Lovenox) 40 mg SC DAILY [facility] PRN Reason: Protocol Last Admin: 07/01/16 08:21 Dose: Not Given Enoxaparin Sodium (Lovenox) 40 mg SC DAILY [facility] PRN Reason: Protocol Last Admin: 07/01/16 08:21 Dose: 40 mg Ferrous Sulfate (Feosol) 325 mg PO TID [facility] Last Admin: 07/01/16 08:21 Dose: 325 mg Meropenem 1 gm/ Sodium (Chloride) 100 mls @ 100 mls/hr IVPB Q12 [facility] Last Admin: 06/30/16 20:46 Dose: 100 mls/hr Vancomycin HCl 750 mg/ Sodium (Chloride) 250 mls @ 250 mls/hr IVPB Q12H [facility] Last Admin: 06/30/16 21:47 Dose: 250 mls/hr Lactated Ringer's (Lactated Ringer's) 1,000 mls @ 100 mls/hr IV .Q10H [facility] Last Admin: 07/01/16 08:17 Dose: Not Given Lactulose (Enulose) 10 gm PO DAILY PRN PRN Reason: Constipation Losartan Potassium (Cozaar) 25 mg PO DAILY [facility] Last Admin: 07/01/16 08:23 Dose: 25 mg Metformin HCl (Glucophage) 1,000 mg PO BIDWM [facility] Last Admin: 07/01/16 08:21 Dose: 1,000 mg Methocarbamol (Robaxin) 500 mg PO QID [facility] Last Admin: 07/01/16 08:22 Dose: 500 mg Oxycodone/Acetaminophen (Percocet 5/325 Mg Tab) 1 tab PO Q4 PRN PRN Reason: Pain, moderate (4-7) Stop: 07/03/16 03:04 Last Admin: 07/01/16 08:20 Dose: 1 tab Pantoprazole Sodium (Protonix Ec Tab) 40 mg PO DAILY [facility] Last Admin: 07/01/16 08:23 Dose: 40 mg Senna/Docusate Sodium (Senokot S 50 Mg-8.6 Mg) 2 tab PO HS [facility] Last Admin: 06/30/16 21:36 Dose: 2 tab Simethicone (Mylicon Chew Tab) 80 mg PO TID PRN PRN Reason: Flatulence Last Admin: 06/30/16 21:39 Dose: 80 mg Sitagliptin Phosphate (Januvia) 100 mg PO DAILY [facility] Last Admin: 07/01/16 08:21 Dose: 100 mg - Labs Labs: 06/28/16 07:00 06/25/16 06:45 PT 11.5 SECONDS (9.6-11.2) H 06/28/16 05:30 INR 1.11 (0.92-1.08) H 06/28/16 05:30 APTT 28.4 SECONDS (23.3-32.5) 06/28/16 05:30 Assessment and Plan (1) Wound infection Status: Acute (2) Diabetes mellitus type 2 in obese Status: Acute (3) Status post total hip replacement, right Status: Acute
[2016-07-01] MEDS: Meropenem 1 GM in Sodium Chloride 0.9% 100 ML IVPB SCH (10:15)
--- NOTE | 2016-07-01 14:56 | CON ---
DATE: 06/20/2016 CHIEF COMPLAINT: Right hip wound drainage, status post total hip replacement. HISTORY OF PRESENT ILLNESS: The patient is a 66-year-old female who underwent a total hip replacemen t. Her initial postoperative course was uncomplicated. Upon discharge from the rehab, the patient h ad persistent wound drainage. She was seen in my office with the wound drainage at that point. The patient had been afebrile with no erythema; however, had persistent wound drainage that was increasin g. At that point, I had recommended patient to go to the Emergency Room and be admitted for IV antib iotics and wound care. The patient is currently at bedside with the wound serous drainage. No purul ent discharge. The patient is afebrile, currently comfortable at the bedside. She is admitted. ID is consulted for IV antibiotic recommendations. PHYSICAL EXAMINATION: Examination of patient's right hip wound, there is an increasing amount of ser ous drainage. No josse pus or erythema around the wound site. The wound's edges are closed. No sin us tract noted. The patient is neurovascularly intact distally. ASSESSMENT AND PLAN: A 66-year-old female status post total hip replacement with persistent wound dr titus. TREATMENT: The patient will be admitted for IV antibiotics and wound monitoring. She will be weight bearing as tolerated with posterior hip precautions. Domenico Gama MD cc: [id number] TT: 07/01/2016 14:56:12 Confirmation # [id number] Dictation # [id number]
[2016-07-04 16:58] VITALS: O2SAT 99
--- NOTE | 2016-07-29 23:52 | CP.PCM.DIS ---
Provider - Provider Date of Admission: 06/20/16 12:32 Attending physician: Kain Hannon MD Time Spent in preparation of Discharge (in minutes): 30 Diagnosis - Discharge Diagnosis (1) Status post total hip replacement, right Status: Acute (2) Diabetes mellitus type 2 in obese Status: Acute (3) Wound infection Status: Acute Hospital Course - Lab Results Lab Results: Micro Results 06/28/16 09:54 Other: Please Indicate Mycobacterial Culture - Preliminary 06/28/16 09:54 Hip Right Fungal Culture - Final NO FUNGUS GROWTH IN 4 WEEKS. 06/28/16 09:54 Synovial Fluid Gram Stain - Final 06/28/16 09:54 Synovial Fluid Body Fluid Culture - Final No growth. 06/28/16 09:00 Hip - Right Gram Stain - Final 06/28/16 09:00 Hip - Right Wound Culture - Final Pseudomonas Aeruginosa 06/28/16 09:00 Hip - Right Gram Stain - Final 06/28/16 09:00 Hip - Right Wound Culture - Final Pseudomonas Aeruginosa 06/28/16 09:00 Hip - Right Gram Stain - Final 06/28/16 09:00 Hip - Right Wound Culture - Final Pseudomonas Aeruginosa 06/28/16 09:54 Hip - Right Anaerobic Culture - Final NO ANAEROBES ISOLATED. 06/28/16 09:00 Hip - Right Gram Stain - Final 06/28/16 09:00 Hip - Right Wound Culture - Final No growth. 06/28/16 09:00 Hip - Right Gram Stain - Final 06/28/16 09:00 Hip - Right Wound Culture - Final No growth. 06/28/16 09:00 Hip - Right Gram Stain - Final 06/28/16 09:00 Hip - Right Wound Culture - Final No growth. 06/28/16 09:00 Hip - Right Gram Stain - Final 06/28/16 09:00 Hip - Right Wound Culture - Final No growth. 06/28/16 09:00 Hip - Right Gram Stain - Final 06/28/16 09:00 Hip - Right Wound Culture - Final No growth. 06/20/16 13:35 Blood Blood Culture - Final NO GROWTH AFTER 5 DAYS 06/20/16 13:35 Blood Gram Stain - Final TEST NOT PERFORMED 06/20/16 13:35 Blood Blood Culture - Final NO GROWTH AFTER 5 DAYS 06/20/16 13:35 Blood Gram Stain - Final TEST NOT PERFORMED 06/21/16 17:51 Hip - Right Gram Stain - Final 06/21/16 17:51 Hip - Right Wound Culture - Final Enterobacter Cloacae Ssp Cloac Most Recent Lab Values WBC 6.7 K/uL (4.8-10.8) 06/28/16 07:00 RBC 3.64 Mil/uL (3.80-5.20) L 06/28/16 07:00 Hgb 10.5 g/dL (12.0-16.0) L D 06/28/16 07:00 Hct 31.9 % (34.0-47.0) L 06/28/16 07:00 MCV 87.6 fl (81.0-99.0) 06/28/16 07:00 MCH 28.8 pg (27.0-31.0) 06/28/16 07:00 MCHC 32.8 g/dL (33.0-37.0) L 06/28/16 07:00 RDW 14.0 % (11.5-14.5) 06/28/16 07:00 Plt Count 305 K/uL (130-400) 06/28/16 07:00 MPV 8.2 fl (7.2-11.7) 06/20/16 12:45 Neut % (Auto) 67.3 % (50.0-75.0) 06/20/16 12:45 Lymph % (Auto) 19.2 % (20.0-40.0) L 06/20/16 12:45 [place] % (Auto) 9.5 % (0.0-10.0) 06/20/16 12:45 Eos % (Auto) 3.2 % (0.0-4.0) 06/20/16 12:45 Baso % (Auto) 0.8 % (0.0-2.0) 06/20/16 12:45 Neut # 4.4 K/uL (1.8-7.0) 06/20/16 12:45 Lymph # 1.2 K/uL (1.0-4.3) 06/20/16 12:45 [place] # 0.6 K/uL (0.0-0.8) 06/20/16 12:45 Eos # 0.2 K/uL (0.0-0.7) 06/20/16 12:45 Baso # 0.0 K/uL (0.0-0.2) 06/20/16 12:45 ESR 91 mm/hr (0-30) H 06/27/16 05:30 PT 11.5 SECONDS (9.6-11.2) H 06/28/16 05:30 INR 1.11 (0.92-1.08) H 06/28/16 05:30 APTT 28.4 SECONDS (23.3-32.5) 06/28/16 05:30 Sodium 146 mmol/l (132-148) 06/25/16 06:45 Potassium 4.2 MMOL/L (3.6-5.0) 06/25/16 06:45 Chloride 107 mmol/L (98-107) 06/25/16 06:45 Carbon Dioxide 26 mmol/L (22-30) 06/25/16 06:45 Anion Gap 16 (10-20) 06/25/16 06:45 BUN 6 mg/dl (7-17) L 06/25/16 06:45 Creatinine 0.5 mg/dL (0.7-1.2) L 06/25/16 06:45 Est GFR ( Amer) > 60 06/25/16 06:45 Est GFR (Non-Af Amer) > 60 06/25/16 06:45 POC Glucose (mg/dL) 98 mg/dL (65-110) 07/01/16 06:01 Random Glucose 99 mg/dL (65-105) 06/25/16 06:45 Calcium 9.0 mg/dL (8.4-10.2) 06/25/16 06:45 Total Bilirubin 0.2 mg/dl (0.2-1.3) 06/20/16 12:45 AST 18 U/L (14-36) 06/20/16 12:45 ALT 24 U/L (9-52) 06/20/16 12:45 Alkaline Phosphatase 122 U/L (38-126) 06/20/16 12:45 C-Reactive Prot, Quant 2.1 mg/dL (<0.8) H 06/27/16 05:30 Total Protein 6.9 G/DL (6.3-8.2) 06/20/16 12:45 Albumin 3.4 g/dL (3.5-5.0) L 06/20/16 12:45 Globulin 3.6 gm/dL (2.2-3.9) 06/20/16 12:45 Albumin/Globulin Ratio 0.9 (1.0-2.1) L 06/20/16 12:45 Procalcitonin < 0.05 NG/ML (0.19-0.49) L 06/21/16 17:51 Urine Color [place] (YELLOW) 06/20/16 13:01 Urine Clarity Slighty-cloudy (Clear) 06/20/16 13:01 Urine pH 5.0 (5.0-8.0) 06/20/16 13:01 Ur Specific [place] 1.036 (1.003-1.030) H 06/20/16 13:01 Urine Protein 30 mg/dL (NEGATIVE) 06/20/16 13:01 Urine Glucose (UA) Neg mg/dL (Normal) 06/20/16 13:01 Urine Ketones Trace mg/dL (NEGATIVE) 06/20/16 13:01 Urine Blood Negative (NEGATIVE) 06/20/16 13:01 Urine Nitrate Negative (NEGATIVE) 06/20/16 13:01 Urine Bilirubin Small (NEGATIVE) 06/20/16 13:01 Urine Urobilinogen 4.0 mg/dL (0.2-1.0) H 06/20/16 13:01 Ur Leukocyte Esterase Neg Sandra/uL (Negative) 06/20/16 13:01 Urine RBC (Auto) 3 /hpf (0-3) 06/20/16 13:01 Urine Microscopic WBC 2 /hpf (0-5) 06/20/16 13:01 Ur Squamous Epith Cells 3 /hpf (0-5) 06/20/16 13:01 Hyaline Casts 0-2 /hpf (0-2) 06/20/16 13:01 Vancomycin Trough 9.0 ug/mL (5.0-10.0) 06/29/16 20:00 Blood Type O POSITIVE 06/27/16 16:45 Antibody Screen Negative 06/27/16 16:45 Crossmatch See Detail 06/27/16 16:45 BBK History Checked Patient has bt 06/27/16 16:45 - Hospital Course Hospital Course: This is a66 y/o female admitted for infected right THR wound. She was recently discharged from the subacute rehab and claims that few days after discharged to home she noted increasing purulent discharge form the wound hence was brought back to ER and admitted for infected THR wound. There was no fever. She was started on IV antibiotics. Wound C and S showed Pseudomonas. She was seen by DR Lomas who performed cleaning and washing of wound. She responded well to treatment and and was started on PT and was sent to another subacute rehab on IV antibiotics. Discharge Exam - Head Exam Head Exam: ATRAUMATIC, NORMAL INSPECTION, NORMOCEPHALIC - Eye Exam Eye Exam: Normal appearance - Respiratory Exam Respiratory Exam: Clear to PA & Lateral - Cardiovascular Exam Cardiovascular Exam: REGULAR RHYTHM - GI/Abdominal Exam GI & Abdominal Exam: Normal Bowel Sounds - Psychiatric Exam Psychiatric exam: Normal Mood - Skin Skin Exam: Normal Color Discharge Plan - Discharge Medications Prescriptions: Meropenem [Merrem IV] 1 gm IV Q12 #84 vial Vancomycin 1 GM [Vancomycin 1GM in Normal Saline Addvantage] 750 gm IVPB Q12 # 84 bag - Follow Up Plan Condition: FAIR Disposition: TRANSF TO SNF Instructions: Surgical Site Infections (DC), How To Wash Your Hands (DC), Incision and Drainage (DC) Additional Instructions: patient cleared for discharge to [facility] cont. Vano/ Merrem IV via PICC x 6 weeks monitor cbc, bmp Referrals: Domenico Gama MD [Staff Provider] -
== END 2016-07-01 13:27 | DRG 482 ==
LOC: H.ER 11:27 → H.ERHOLD 12:32 → H.MEDSURG1 18:34
PROVIDERS: ADMIT Family Medicine; ATTEND Family Medicine
PROC: 02HV33Z Insertion of Infusion Device into Superior Vena Cava, Percutaneous Approach (ICD-10-PCS; 2016-06-21)
PROC: B518ZZA Fluoroscopy of Superior Vena Cava, Guidance (ICD-10-PCS; 2016-06-21)
PROC: 3E04329 Introduction of Other Anti-infective into Central Vein, Percutaneous Approach (ICD-10-PCS; 2016-06-21)
PROC: 30233N1 Transfusion of Nonautologous Red Blood Cells into Peripheral Vein, Percutaneous Approach (ICD-10-PCS; 2016-06-27)
PROC: 0SB90ZZ Excision of Right Hip Joint, Open Approach (ICD-10-PCS; 2016-06-28)
PROC: 0S9900Z Drainage of Right Hip Joint with Drainage Device, Open Approach (ICD-10-PCS; principal; 2016-06-28 08:00)
DX: T84.51XA Infection and inflammatory reaction due to internal right hip prosthesis, initial encounter (principal); B96.5 Pseudomonas (aeruginosa) (mallei) (pseudomallei) as the cause of diseases classified elsewhere; Z68.36 Body mass index [BMI] 36.0-36.9, adult; E11.9 Type 2 diabetes mellitus without complications; E66.9 Obesity, unspecified; D64.9 Anemia, unspecified; M16.11 Unilateral primary osteoarthritis, right hip; Z96.641 Presence of right artificial hip joint; Z79.82 Long term (current) use of aspirin